=== PATIENT | male | born 1940 | race Caucasian/White ===

== ENCOUNTER 2020-04-03 08:17 | Inpatient (IN) | payer OTHER, MEDICARE ==
[~2020-04-03] VITALS: Ht 172.7 cm; Wt 57.3 kg
[2020-04-03] MEDS ORDERED: Aspirin EC81 MG PO (08:51)
[2020-04-03 09:23] LABS: International Normalized Ratio 1.4; Prothrombin Time Results 14.7 Sec (9.7-11.5)
[2020-04-03 09:26] LABS: Alanine Aminotransfer (ALT/SGP 53 U/L (12-78); Albumin, Blood 3.2 g/dL (3.4-5.0); Albumin/Globulin Ratio 0.9 (0.8-1.8); Alk Phos 104 U/L (50-136); Anion Gap 10 mmol/L (6-16); Aspartate Aminotrans (AST/SGOT 39 U/L (12-37); Bilirubin, Total 2.1 mg/dL (0.1-1.0); Blood Urea Nitrogen 41 mg/dL (8-24); Bun/Creatinine Ratio 28.3 (12.0-20.0); CO2, Blood 21 mmol/L (21-32); Calcium, Blood 8.8 mg/dL (8.5-10.1); Chloride, Blood 111 mmol/L (98-108); Creatinine, Blood 1.45 mg/dL (0.60-1.20); Globulin, Blood 3.6 g/dL (2.2-4.0); Glomerular Filtration Rate 50 (60-); Glucose, Blood 110 mg/dL (70-99); Potassium, Blood 3.5 mmol/L (3.5-5.5); Sodium, Blood 142 mmol/L (136-145); Total Protein, Blood 6.8 g/dL (6.4-8.2); Troponin I <0.015 ng/mL (0.000-0.040)
[2020-04-03] MEDS ORDERED: Pravachol40 MG PO (09:49)
[2020-04-03 10:49] LABS: BASOPHILS ABSOLUTE AUTO 0.02 K/mm3 (0.00-0.23); BASOPHILS PERCENT AUTO 0 % (0-2); EOSINOPHILS ABSOLUTE AUTO 0.03 K/mm3 (0.00-0.68); EOSINOPHILS PERCENT AUTO 0 % (0-6); Hematocrit 41.9 % (37.0-53.0); Hemoglobin 13.8 g/dL (13.5-17.5); IMMATURE GRAN ABSOLUTE AUTO 0.02 K/mm3 (0.00-0.10); IMMATURE GRAN PERCENT AUTO 0 % (0-1); LYMPHOCYTES ABSOLUTE AUTO 1.81 K/mm3 (0.84-5.20); LYMPHOCYTES PERCENT AUTO 27 % (21-46); MONOCYTES ABSOLUTE AUTO 0.59 K/mm3 (0.16-1.47); MONOCYTES PERCENT AUTO 9 % (4-13); Mean Corpuscular HGB 30.8 pg (26.0-34.0); Mean Corpuscular HGB Conc 32.9 g/dL (31.5-36.5); Mean Corpuscular Volume 94 fL (80-100); Mean Platelet Volume 11.3 fL (9.1-12.4); NEUTROPHILS ABSOLUTE AUTO 4.37 K/mm3 (1.96-9.15); NEUTROPHILS PERCENT AUTO 64 % (41-73); NRBC ABSOLUTE 0.02 K/mm3 (0.00-0.02); NRBC Auto 0.3 /100 WBC (0.0-0.2); Platelet Count 119 K/mm3 (150-400); Red Blood Cell Count 4.48 M/mm3 (4.30-5.90); White Blood Cell Count 6.84 K/mm3 (4.00-11.30)
[2020-04-03] MEDS ORDERED: AMLO5 PO (14:55)
--- NOTE | 2020-04-03 17:28 | NUR ---
ADMIT NOTE/SHIFT SUMMARY RECEIVIED REPORT FROM MIRI ESCOBAR ASSUMING CARE OF PT. PT TO ROOM AT 1450; ORIENTED TO ROOM AND CALL LIGHT. 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 PT AKIAK EVEN WITH HEARING AIR IN PLACE. ALERT, ORIENTED x3. FORGETFUL AT TIMES. PT REPORTS SOB WITH EXERTION, SPO2 >90% ON RA. PT DENIES PAIN, CHEST PAIN, DIZZINES AND NAUSEA. HR 90-120'S ON CARDIZEM GTT AND STARTED IV DIGOXIN PER ORDERS. OTHER VSS. NO OTHER ACUTE CHANGES NOTED DURING SHIFT. SON AT BEDSIDE THIS EVENING, TOOK PT [facility] HOME. WILL CONTINUE TO MONITOR UNITL REPORT GIVEN TO ONCOMING RN.
[2020-04-04 07:14] LABS: BASOPHILS ABSOLUTE AUTO 0.02 K/mm3 (0.00-0.23); BASOPHILS PERCENT AUTO 0 % (0-2); EOSINOPHILS ABSOLUTE AUTO 0.04 K/mm3 (0.00-0.68); EOSINOPHILS PERCENT AUTO 1 % (0-6); Hematocrit 43.1 % (37.0-53.0); Hemoglobin 14.3 g/dL (13.5-17.5); IMMATURE GRAN ABSOLUTE AUTO 0.03 K/mm3 (0.00-0.10); IMMATURE GRAN PERCENT AUTO 0 % (0-1); LYMPHOCYTES ABSOLUTE AUTO 2.09 K/mm3 (0.84-5.20); LYMPHOCYTES PERCENT AUTO 29 % (21-46); MONOCYTES PERCENT AUTO 8 % (4-13); Mean Corpuscular HGB Conc 33.2 g/dL (31.5-36.5); Mean Corpuscular Volume 93 fL (80-100); Mean Platelet Volume 10.6 fL (9.1-12.4); NEUTROPHILS ABSOLUTE AUTO 4.33 K/mm3 (1.96-9.15); NEUTROPHILS PERCENT AUTO 61 % (41-73); Platelet Count 100 K/mm3 (150-400); RDW Standard Deviation 51.2 fL (35.1-46.3); Red Blood Cell Count 4.62 M/mm3 (4.30-5.90); White Blood Cell Count 7.11 K/mm3 (4.00-11.30)
[2020-04-04 07:24] LABS: Albumin, Blood 2.9 g/dL (3.4-5.0); Albumin/Globulin Ratio 0.9 (0.8-1.8); Bilirubin, Total 2.2 mg/dL (0.1-1.0); Bun/Creatinine Ratio 29.7 (12.0-20.0); Calcium, Blood 8.5 mg/dL (8.5-10.1); Creatinine, Blood 1.28 mg/dL (0.60-1.20); Globulin, Blood 3.4 g/dL (2.2-4.0); Phosphorus, Blood 3.2 mg/dL (2.5-4.9); Potassium, Blood 3.7 mmol/L (3.5-5.5); Total Protein, Blood 6.3 g/dL (6.4-8.2)
--- NOTE | 2020-04-04 08:10 | NUR ---
Pt set bed alarm off when he exited to go to the bathroom. Assisted to bathroom to void. Walked with verbal cues to chair, chair alarm on. He is eating breakfast.
--- NOTE | 2020-04-04 09:29 | NUR ---
RECIEVED REPORT FROM TONG ANDRE RN @ 3370. PATIENT TO TRANSFER TO ROOM 343.
--- NOTE | 2020-04-04 14:30 | NUR ---
PATIENT HAS BEEN PLEASANT AND COOPERATIVE WITH STAFF. VITALS ARE STABLE. DENIES PAIN OR DISCOMFORT. PLEASANTLY CONFUSED. DENIES PAIN OR DISCOMFORT. NO ACUTE CHANGES TO REPORT OF AT THIS TIME. CALL LIGHT WITHIN REACH.
--- NOTE | 2020-04-04 18:08 | NUR ---
Transfer from 343 to 346 Patient transferred to room 346 for closer observation. Received brief update from Yulia CHERY. Patient settled to room and currently sleeping. Dinner left at bedside. SALUD.
--- NOTE | 2020-04-04 18:08 | NUR ---
GAVE VERBAL REPORT TO MIRI FREGOSO. PATIENT MOVED TO ROOM 346 IN THE SCU FOR CLOSER MONITORING. GREGORY TO ASSUME PATIENT CARE AT THIS TIME.
--- NOTE | 2020-04-04 18:49 | NUR ---
ADMIT:04/03/20 DISCHARGE: DX: afib, chf CC: [facility] TRANG CALL: Met with Julien and lance Jacobo, call Julien at home for trang RESIDENCE: home- alone, upstair apartment- 15 steps. CAREGIVER: no hippa contacts [facility] Donnell Estrada [phone]- Friend, will be ride home from Hospital. DX: htn, copd, hearing loss, AFIB, CHF, see list. DME: no record CCM: no record HOME HEALTH: no record SUMMARY: ADMIT 04/03/20 04/04/20 ETA for discharge Wednesday per Dr Oneal. Met with Julien and Donnell today, discussed home, upstairs. Climbed 8 stairs today before tiring with PT, Will see how he is doing tommorrow before discharging home. He does not use ambulation aids. still drives and cooks for himself. Friend Donnell will help with at home until he is strong enough to meet his own needs. Discussed Medicaid services for future care needs. Sisters on contact list from Sheila Sotelo [phone] Cristina [phone] Pt recommends home, outpatient pt, partime care. CHF education was provided in hosptial by RT Bhavik Alvarez. 04/03/19 ASSESSMENT AND PLAN: 1. New onset atrial fibrillation with rapid ventricular response. He is currently on a Cardizem drip. Toprol-XL 50 mg has been administered and we will also add digoxin. Start anticoagulation with low molecular weight heparin. 2. New onset congestive heart failure with bilateral lower extremity edema. Start diuresis with Lasix and Aldactone. Obtain echocardiogram.
--- NOTE | 2020-04-04 23:32 | NUR ---
CALL TO HOSPITALIST / HR SUSTAINED 125-130 FOR ABOUT 10MIN PT SLEEPING. ASYMPTOMATIC. RECEIVED ORDER FROM KAT DE LOS SANTOS FOR METOPROLOL 5MG IV OT. IF METOPROLOL EFFECTIVE, INITIATE ORDER FOR METOPROLOL 5MG IV Q2 HRS PRN HR SUSTATINED >120.
--- NOTE | 2020-04-05 06:42 | NUR ---
SHIFT SUMMARY: PT A/O TO SELF ONLY. VERY CONFUSED AND FORGETFUL. PLEASANT. SLEPT INTERMITTENTLY. PT UP INDEPENDENTLY AMB IN ROOM. GAIT IS STEADY. PT SAW THAT HIS BRIEF WAS WET BUT DID NOT UNDERSTAND WHAT TO DO WHEN HANDED A CLEAN DRY ONE. RATE AND RHYTHM: AFIB W/ HR RANGING FROM 106-118. BP STABLE OVERNIGHT. PT IS SLEEPING AT THIS TIME. [facility].
--- NOTE | 2020-04-05 08:38 | NUR ---
HR Afib 126-140's Patient has been trending upwards with HR since 0752 this AM per environmental monitoring specialist. HR ranges between 126-140's. Oral AM meds given. Dr. Castañeda notified. Awaiting order for lopressor IV.
--- NOTE | 2020-04-05 08:57 | NUR ---
UPDATE HR 5 MINS POST IV LOPRESSOR GIVEN, PER SUPERVISOR CONDITIONING YARD, PATIENT HR STILL RANGING BETWEEN 115-130'S. WCTM.
--- NOTE | 2020-04-05 09:20 | NUR ---
UPDATE HR 15 MINUTES POST IV LOPRESSOR GIVEN, HR RANGING 120-130'S. DR. CARLSON NOTIFIED AND IN TO SEE PATIENT AT THIS TIME. MD DECISION TO KEEP PATIENT ON MED FLOOR. AWAITING FURTHER ORDERS. CHARGE NURSE NOTIFIED.
[2020-04-05 09:27] LABS: BASOPHILS ABSOLUTE AUTO 0.01 K/mm3 (0.00-0.23); BASOPHILS PERCENT AUTO 0 % (0-2); EOSINOPHILS ABSOLUTE AUTO 0.07 K/mm3 (0.00-0.68); EOSINOPHILS PERCENT AUTO 1 % (0-6); Hemoglobin 15.7 g/dL (13.5-17.5); IMMATURE GRAN ABSOLUTE AUTO 0.04 K/mm3 (0.00-0.10); IMMATURE GRAN PERCENT AUTO 1 % (0-1); LYMPHOCYTES ABSOLUTE AUTO 2.01 K/mm3 (0.84-5.20); LYMPHOCYTES PERCENT AUTO 29 % (21-46); MONOCYTES ABSOLUTE AUTO 0.62 K/mm3 (0.16-1.47); MONOCYTES PERCENT AUTO 9 % (4-13); Mean Corpuscular HGB Conc 33.4 g/dL (31.5-36.5); Mean Corpuscular Volume 93 fL (80-100); Mean Platelet Volume 10.2 fL (9.1-12.4); NEUTROPHILS ABSOLUTE AUTO 4.22 K/mm3 (1.96-9.15); NEUTROPHILS PERCENT AUTO 61 % (41-73); NRBC ABSOLUTE 0.02 K/mm3 (0.00-0.02); NRBC Auto 0.3 /100 WBC (0.0-0.2); Platelet Count 108 K/mm3 (150-400); RDW Standard Deviation 50.4 fL (35.1-46.3); Red Blood Cell Count 5.06 M/mm3 (4.30-5.90); White Blood Cell Count 6.97 K/mm3 (4.00-11.30)
[2020-04-05 09:44] LABS: Albumin, Blood 2.5 g/dL (3.4-5.0); Albumin/Globulin Ratio 0.8 (0.8-1.8); Bun/Creatinine Ratio 25.7 (12.0-20.0); Calcium, Blood 8.1 mg/dL (8.5-10.1); Creatinine, Blood 1.36 mg/dL (0.60-1.20); Globulin, Blood 3.3 g/dL (2.2-4.0); Potassium, Blood 3.7 mmol/L (3.5-5.5); Total Protein, Blood 5.8 g/dL (6.4-8.2)
--- NOTE | 2020-04-05 19:25 | NUR ---
Shift Summary A/Ox2-3 with occassional forgetfulness. HR better managed the rest of shift since additional meds ordered. Thigh-high TEDS placed on BLE, 3+ edema still present. Up independently in room and to bathroom. Encouraged use of urinal for accurate I/O. Daughter at bedside briefly this afternoon. Per daughter, Davy (son) is the contact point for all questions. Tele: Afib 108. Denies chest pain, shortness of breath, dizziness, nausea, vomiting. Appetite is poor. Worked with PT, refused OT. Report given to oncoming RN.
--- NOTE | 2020-04-06 04:31 | NUR ---
SHIFT SUMMARY ADMITTED FOR NEW ONSET AFIB W/RVR. FULL CODE. PLAN IS FOR EVENTUAL DC HOME W/HH. PT WANDERS AND IS FORGETFUL. IV METOPROLOL GIVEN FOR TACHYCARDIA ONE TIME THIS SHIFT. PT REMOVES HIS TELEMETRY FREQUENTLY. HE DOES LIVE ALONE. HE IS EASILY REDIRECTABLE.
[2020-04-06 05:54] LABS: Anion Gap 9 mmol/L (6-16); Blood Urea Nitrogen 33 mg/dL (8-24); Bun/Creatinine Ratio 26.2 (12.0-20.0); CO2, Blood 27 mmol/L (21-32); Calcium, Blood 8.2 mg/dL (8.5-10.1); Chloride, Blood 105 mmol/L (98-108); Creatinine, Blood 1.26 mg/dL (0.60-1.20); Digoxin (Lanoxin) 1.37 ug/mL (0.80-2.00); Glomerular Filtration Rate 59 (60-); Glucose, Blood 73 mg/dL (70-99); Magnesium, Blood 1.7 mg/dL (1.6-2.4); Potassium, Blood 3.5 mmol/L (3.5-5.5); Sodium, Blood 141 mmol/L (136-145)
--- NOTE | 2020-04-06 18:06 | NUR ---
PT AOX2-3 WITH CONFUSION. PT AT TIMES WILL APPEAR MUCH MORE ORIENTED, BUT THEN BE VERY CONFUSED MOMENTS AFTER. PT HAS BEEN VERY BUSY PULLING OF HIS TELE TODAY AND FORGOT TO PULL DOWN HIS ATTENDS WHEN HE HAD A BM ON TOILET. PT HAS HAD A COUPLE INCREASED HR EPISODES AND SEARCH AND RESCUE OFFICER DR HERRERA WAS CONSULTED. PT IS TO BE TREATED OUT PT. PT HAD BEEN KEEP NPO PRIOR TO CONSULT INCASE HE NEEDED ANYTHING DONE. PT IS NOW EATING DINNER. SON CALLED ILIR IN THE DAY. HE AND HIS SISTER ARE CONCERNED FOR PT'S SAFETY HE SEEMS TO BE VERY CONFUSED. SON STATED HIS SISTER HAD TOLD HIM THE PT COULD NOT REMEMBER HER NAME WHEN SHE VISITED YESTERDAY. CALL LIGHT IS WITHIN REACH WILL CONTINUE TO MONITOR.
--- NOTE | 2020-04-07 03:19 | NUR ---
TELE REPORTS PT'S HR A. FIB IN THE 120'S TO 130'S. IV LOSPRESSOR GIVEN. WILL CONTINUE TO MONITOR.
[2020-04-07 05:38] LABS: Anion Gap 7 mmol/L (6-16); Blood Urea Nitrogen 27 mg/dL (8-24); Bun/Creatinine Ratio 23.1 (12.0-20.0); CO2, Blood 31 mmol/L (21-32); Calcium, Blood 8.6 mg/dL (8.5-10.1); Chloride, Blood 99 mmol/L (98-108); Creatinine, Blood 1.17 mg/dL (0.60-1.20); Glomerular Filtration Rate >60 (60-); Glucose, Blood 82 mg/dL (70-99); Magnesium, Blood 1.8 mg/dL (1.6-2.4); Potassium, Blood 3.6 mmol/L (3.5-5.5); Sodium, Blood 137 mmol/L (136-145)
--- NOTE | 2020-04-07 06:59 | NUR ---
pecan mallow dipper summary a/o x0. pt impulsive and kept getting out of bed without calling. pt very unstable on feet and does not follow directions. shante vest placed on 0040, education given on why it was placed. pt irritable and was cussed. able to sleep some of the night. report given to oncoming rn.
--- NOTE | 2020-04-07 14:07 | NUR ---
SUMMARY: ADMIT 04/03/20 04/07/20- per chart review with Dr. Castañeda, he originally stated that pt could be d/c home today. But after talking with son, Domingo, pt will be staying and either SNF &/or Long-term care facility will need to be found for pt due to him living by himself and concerns about pt being able to take care of himself. -yudith
[2020-04-08 05:50] LABS: BASOPHILS ABSOLUTE AUTO 0.01 K/mm3 (0.00-0.23); BASOPHILS PERCENT AUTO 0 % (0-2); EOSINOPHILS ABSOLUTE AUTO 0.16 K/mm3 (0.00-0.68); EOSINOPHILS PERCENT AUTO 2 % (0-6); Hematocrit 45.8 % (37.0-53.0); Hemoglobin 15.5 g/dL (13.5-17.5); IMMATURE GRAN ABSOLUTE AUTO 0.02 K/mm3 (0.00-0.10); IMMATURE GRAN PERCENT AUTO 0 % (0-1); LYMPHOCYTES ABSOLUTE AUTO 2.76 K/mm3 (0.84-5.20); LYMPHOCYTES PERCENT AUTO 35 % (21-46); MONOCYTES ABSOLUTE AUTO 0.98 K/mm3 (0.16-1.47); MONOCYTES PERCENT AUTO 13 % (4-13); Mean Corpuscular HGB 30.6 pg (26.0-34.0); Mean Corpuscular HGB Conc 33.8 g/dL (31.5-36.5); Mean Corpuscular Volume 91 fL (80-100); Mean Platelet Volume 10.3 fL (9.1-12.4); NEUTROPHILS PERCENT AUTO 50 % (41-73); Platelet Count 126 K/mm3 (150-400); RDW Coefficient Variation 14.6 % (11.7-14.2); RDW Standard Deviation 48.4 fL (35.1-46.3); Red Blood Cell Count 5.06 M/mm3 (4.30-5.90); White Blood Cell Count 7.83 K/mm3 (4.00-11.30)
[2020-04-08 06:23] LABS: Anion Gap 7 mmol/L (6-16); Blood Urea Nitrogen 28 mg/dL (8-24); Bun/Creatinine Ratio 24.1 (12.0-20.0); CO2, Blood 29 mmol/L (21-32); Calcium, Blood 8.7 mg/dL (8.5-10.1); Chloride, Blood 101 mmol/L (98-108); Creatinine, Blood 1.16 mg/dL (0.60-1.20); Glomerular Filtration Rate >60 (60-); Glucose, Blood 79 mg/dL (70-99); Potassium, Blood 3.5 mmol/L (3.5-5.5); Sodium, Blood 137 mmol/L (136-145)
--- NOTE | 2020-04-08 07:03 | NUR ---
04/08/20 0600 PT IN BOTH VEST AND KEISHA. WRIST RESTRAINTS DUE TO HIS NON-COMPLIANCE WITH STAYING IN BED AND NOT PULLING AT IV DRESSINGS. BED ALARM AND CONTINOUS VIDEO MONITORING FOR SAFETY IN EFFECT. UP TO THE BATHROOM FOR VOIDINGS.
--- NOTE | 2020-04-08 10:18 | NUR ---
04/04/20 s/w Son Domingo, discussed PT OT eval, PT rec home, OT rec Memory care. Discussed applying for Medicaid, home caregivers, Mailed him a packet of information, housing, caregivers, medicaid and gaurdianship. DOMINGO LEON [phone]. SON. LATE ENTRY. 04/08/20. CP
--- NOTE | 2020-04-08 17:15 | NUR ---
PT AOX1 WITH CONFUSION. PT HAD WRIST RESTRAINTS REMOVED AND STILL NEEDS POSE VEST RESTRAINT HE IS UNSTEADY AND IMPULSIVE. PT KEEPS STATING HE WANTS TO LEAVE, BUT AT THIS TIME DOES NOT KEEP TO THE SAME TOPIC SEEMS TO LOOSE TRACK OF WHAT HE HAS TO SAY OR FORGET WHAT HE WAS TALKING ABOUT. PT IS VERY HARD TO REDIRECT. PT WAS EASIER TO GET FROM RESTROOM TO BED TODAY COMPARED TO YESTERDAY. PT NEEDS HIS PILL CRUSHED IN APPLESAUCE HE HAS TROULBE NOW REMEMBERING HE HAS TO SWALLOW. CALL LIGHT IS WITHIN REACH WILL CONTINUE TO MONITOR.
--- NOTE | 2020-04-08 21:40 | NUR ---
04/08/20 Julien is much more confused since I met with him on . Floor nurse says he more of a fall risk, says his eyes glaze over and his knees will buckle underneath him. He is sucking on his medications instead of swallowing. He has been in restrainsts for the last 2 days due to getting out of bed with out help and pulling out IV lines. Will contact Son to discuss retirement care planning. Not safe to discharge home alone per floor nurse. cp
--- NOTE | 2020-04-09 04:51 | NUR ---
DERMATOPATHOLOGIST SUMMARY NO ACUTE CHANGE THIS SHIFT. PT AAO TO SELF AND . UNAWARE THAT HE IS IN THE HOSPITAL MOST OF THE TIME. REMAINS IN [place] VEST PT CONTINUES TO ATTEMPT TO GET OUT OF BED WITHOUT ASSISTANCE AND PT IS HIGH FALL RISK. PT IS MOSTLY PLEASANT AND COOPERATIVE. EASILY REDIRECTED. ASSISTED WITH URINAL AT BEDSIDE ONCE TONIGHT. VSS, WILL CONTINUE TO MONITOR.
--- NOTE | 2020-04-09 18:46 | NUR ---
PATIENT IS ALERT AND ORIENTED TO SELF AND FAMILY. THE PATIENT HAS A HARD TIME FOLLOWING DIRECTIONS. THE PATIENT DOES TRY TO GET OUT OF BED OR THE CHAIR ON HIS OWN, BED ALARM AND CHAIR ALARM IN PLACE. PATIENT IS ON CAMERA MONITORING. PATIENT WORKED WITH PT AND OT TODAY. HE CAN WALK TO THE BATHROOM WITH 1PA. THE PATIENT HAS ONE HEARING AID IN PLACE. THE FAMILY IS IN CONTACT WITH KARLA FROM [employer]. WILL CONTINUE TO MONITOR.
--- NOTE | 2020-04-09 18:52 | NUR ---
04/09/20 s/w Domingo, son, by telephone, he will contact [employer] and apply for services for his father. Still in restrainsts. Dr Diallo to order another cognitive evaluation from OT.
--- NOTE | 2020-04-10 05:12 | NUR ---
SHIFT SUMMARY NO ACUTE CHANGES TO REPORT THIS SHIFT. PT HAS RESTED MOST OF THE NIGHT. PT IS VERY CONFUSED A/O TO SELF AND HAS DIFFICULTY FOLLOWING DIRECTIONS. PT OCCASIONALLY SETS OFF BED ALARM T/O THE NIGHT, MOSTLY WHEN HE NEEDS TO GO TO THE BATHROOM. ASSESSMENT REMAINS UNCHANGED. BED IN LOWEST POSITION, CALL LIGHT WITHIN REACH.
--- NOTE | 2020-04-10 13:55 | NUR ---
04/10/20 s/w Domingo- son by telephone, still working on applying for ap[employer] services for placement or care. PT today states walking 150 ft, climbed stairs. rec home. partime care Out of restrainsts and easily redirectable per floor nurse. OT from rec memory care. Dr Diallo requested an additional mini mental eval today. cp
--- NOTE | 2020-04-10 18:27 | NUR ---
SHIFT SUMMARY- PT WORKED WITH THERAPY TODAY, WALKED STAIRS WELL. PT ALERT TO SELF AND FAMILY. PT HAD A FRIEND COME TO VISIT HIM THIS EVENING AND HE CALLED HER BY NAME. PT WAS ASKED FOR PERMISSION TO SPEAK TO HIS DAUGHTER AND HE STATED "SURE I HAVE HER NUMBER DO YOU NEED IT?" PT VERBALLY GAVE PERMISSION FOR THE STAFF TO SPEAK TO HIS DAUGHTER. COMMUNICATION SHEET UPDATED. PT CURRENTLY IN BED, CALL LIGHT IN REACH BED ALARM FOR SAFETY.
--- NOTE | 2020-04-11 07:18 | NUR ---
SHIFT SUMMARY PATIENT CONFUSED OVERNIGHT, WAS PLEASANT AND EASILY REDIRECTABLE. HE SLEPT WELL MOST OF THE NIGHT. WOULD OCCASIONALLY TRY TO EXIT HIS BED AND SET THE ALARM OFF. BED IN LOWEST POSITION WITH WHEELS LOCKED AND ALARM ON. CALL LIGHT WITHIN REACH. REPORT GIVEN TO ONCOMING RN.
--- NOTE | 2020-04-11 17:55 | NUR ---
04/11/20 Met with Domingo (son) and Julien in room today, Dr Diallo updated POLST. Emailed [employer] form for Domingo to have access to medical records and apply for services for Julien.. cp
--- NOTE | 2020-04-11 19:25 | NUR ---
SHIFT SUMMARY- PT ALERT AND ORIENTED TO SELF AND FAMILY. PT IS STILL UNAWARE OF WHERE HE IS. PT HAS A BED ALARM ON FOR SAFETY. PT ON CAMERAS FOR SAFETY. PT IMPULSIVE, DOES NOT CALL APPROPRIATELY AND HAS LARGE BRUISES AND SCRAPES ON HIS KNEES POTENTIALLY FROM PRIOR FALLS. PT IS STILL A FALL RISK. PT IN BED WITH THE CALL LIGHT IN REACH NO S&S OF DISTRESS AT THE TIME OF SHIFT CHANGE. BEDSIDE REPORT COMPLETED WITH NIGHT MIRI ONTIVEROS.
--- NOTE | 2020-04-12 06:03 | NUR ---
SHIFT SUMMARY PATIENT PLEASANTLY CONFUSED OVERNIGHT. WAS ABLE TO BE REDIRECTED FAIRLY EASILY. HAD NO COMPLAINTS OF CHEST PAIN OR SHORTNESS OF BREATH. SLEPT WELL OVERNIGHT. BED IN LOWEST POSITION WITH WHEELS LOCKED AND ALARM ON. CALL LIGHT WITHIN REACH. REPORT GIVEN TO ONCOMING RN.
--- NOTE | 2020-04-12 17:54 | NUR ---
04/12/20 s/w Renita in Care management. Discussed that Julien is in need of senior living care, family unable to pay or care for his 24 hour needs. Son Domingo is applying for Services through [employer]. Renita added Julien to the manager long term care care list and waiting for medicaid approval list that she manages. cp
--- NOTE | 2020-04-12 18:39 | NUR ---
SHIFT SUMMARY- PT ALERT AND ORIENTED TO SELF AND FAMILY. POLST FORM COMPLETED BY THE FAMILY, COPY IN THE FRONT OF THE PT CHART. PT HAS BEEN PLEASENTLY CONFUSED TODAY, BECAME A BIT AGGITATED THIS EVENING. NO S&S OF DISTRESS NOTED AT THE TIME OF REPORT. PT IN BED SLEEPING.
[2020-04-13 05:37] LABS: BASOPHILS ABSOLUTE AUTO 0.03 K/mm3 (0.00-0.23); BASOPHILS PERCENT AUTO 0 % (0-2); EOSINOPHILS ABSOLUTE AUTO 0.12 K/mm3 (0.00-0.68); EOSINOPHILS PERCENT AUTO 2 % (0-6); Hematocrit 47.5 % (37.0-53.0); Hemoglobin 15.7 g/dL (13.5-17.5); IMMATURE GRAN ABSOLUTE AUTO 0.03 K/mm3 (0.00-0.10); IMMATURE GRAN PERCENT AUTO 0 % (0-1); LYMPHOCYTES ABSOLUTE AUTO 2.42 K/mm3 (0.84-5.20); LYMPHOCYTES PERCENT AUTO 32 % (21-46); MONOCYTES ABSOLUTE AUTO 0.86 K/mm3 (0.16-1.47); MONOCYTES PERCENT AUTO 11 % (4-13); Mean Corpuscular HGB Conc 33.1 g/dL (31.5-36.5); Mean Corpuscular Volume 91 fL (80-100); Mean Platelet Volume 9.9 fL (9.1-12.4); NEUTROPHILS PERCENT AUTO 55 % (41-73); Platelet Count 157 K/mm3 (150-400); RDW Coefficient Variation 14.9 % (11.7-14.2); RDW Standard Deviation 49.3 fL (35.1-46.3); Red Blood Cell Count 5.23 M/mm3 (4.30-5.90); White Blood Cell Count 7.66 K/mm3 (4.00-11.30)
--- NOTE | 2020-04-13 05:46 | NUR ---
SHIFT SUMMARY NO ACUTE CHANGES THIS SHIFT, NO C/O ANY KIND, PT A&O TO SELF, NOT ALWAYS EASY TO REDIRECT, SLEPT T/O THE NIGHT WAKING AND SETTING BED ALARM OFF A FEW TIMES TO USE THE BATHROOM, SLEEPING AT THIS TIME, CALL LIGHT IN REACH, WILL CONT TO MONITOR UNTIL REPORT GIVEMN TO DAY RN.
[2020-04-13 05:57] LABS: Albumin, Blood 2.8 g/dL (3.4-5.0); Anion Gap 7 mmol/L (6-16); Blood Urea Nitrogen 33 mg/dL (8-24); Bun/Creatinine Ratio 26.6 (12.0-20.0); CO2, Blood 27 mmol/L (21-32); Calcium, Blood 8.5 mg/dL (8.5-10.1); Chloride, Blood 104 mmol/L (98-108); Creatinine, Blood 1.24 mg/dL (0.60-1.20); Glomerular Filtration Rate >60 (60-); Glucose, Blood 72 mg/dL (70-99); Magnesium, Blood 2.5 mg/dL (1.6-2.4); Phosphorus, Blood 3.2 mg/dL (2.5-4.9); Sodium, Blood 138 mmol/L (136-145)
--- NOTE | 2020-04-13 15:49 | NUR ---
HE WALKS EASILY WITH 1 ASSIST. HE NEEDS HELP D/T POOR VISION AND CONFUSION.
--- NOTE | 2020-04-13 17:52 | NUR ---
REMAINS VERY CONFUSED. HE IS PLEASANT. NO SHORT TERM MEMORY. HIS SON PANDA CAME TO VISIT HIM BUT DID NOT WAKE HIM. SAYS A FRIEND WILL COME TOMORROW INSTEAD OF HIM. HE SAYS HIS DAD LIVED ALONE AND WAS NOT CONFUSED LIKE THIS AT HOME BUT ADMITS HE DID NOT SEE HIM OR PHONE HIM REGULARLY. WHEN I LATER TOLD EILEEN THAT PANDA WAS HERE HE DID NOT SEEM TO UNDERSTAND. HIS KNEES LOOK LIKE MULTIPLE TINY SCABS. HE SAYS HE SKINNED THEM UP. THE REPORT IS THAT HE HAD MULTIPLE FALLS AT HOME. WE USE ALL THE ALARMS BUT HE IS VERY IMPULSIVE AND FAST. OFTEN HE IS ON HIS FEET AND AWAY FROM THE BED OR CHAIR WHEN WE RUN IN. HE HAS NOT EATEN WELL THOUGH ENCOURAGED AT EACH MEAL. VSS.
--- NOTE | 2020-04-14 05:06 | NUR ---
SHIFT SUMMARY PT REMAINS CONFUSED, SLEPT T/O THE NIGHT WAKING AND SOUNDING BED ALARM WHEN ATTEMPTING TO TOILET, TWICE THIS SHIFT DURING TRIPS TO/FROM BATHROOM PT HAS HAD EPISODES OF SHAKING AND BECOMING WEAK AND HAVING NEAR FALL'S BOTH TIME STAFF WAS WITH PT AND ABLE TO ASSIST HIM TO SIT IN CHAIR. NO OTHER CHANGES THIS SHIFT, PT SLEEPING AT THIS TIME, CALL LIGHT IN REACH, WILL CONT TO MONITOR UNTIL REPORT GIVEN TO DAY RN.
[2020-04-14 05:46] LABS: Albumin, Blood 2.7 g/dL (3.4-5.0); Anion Gap 7 mmol/L (6-16); Blood Urea Nitrogen 32 mg/dL (8-24); Bun/Creatinine Ratio 25.4 (12.0-20.0); CO2, Blood 26 mmol/L (21-32); Calcium, Blood 8.5 mg/dL (8.5-10.1); Chloride, Blood 104 mmol/L (98-108); Creatinine, Blood 1.26 mg/dL (0.60-1.20); Glomerular Filtration Rate 59 (60-); Glucose, Blood 102 mg/dL (70-99); Magnesium, Blood 2.4 mg/dL (1.6-2.4); Phosphorus, Blood 3.4 mg/dL (2.5-4.9); Potassium, Blood 4.6 mmol/L (3.5-5.5); Sodium, Blood 137 mmol/L (136-145)
--- NOTE | 2020-04-14 17:36 | NUR ---
HE HAS NAPPED OFF AND ON TODAY. HE REMAINS EXTREMELY CONFUSED. HE IS UNABLE TO FOLLOW DIRECTIONS. HIS NEIGHBOR FRIEND OWEN CALLED HIM. HE COULDN'T HEAR HER VERY WELL BUT DIDN'T KNOW WHO I WAS TALKING ABOUT WHEN I GAVE HIM HER MESSAGE. I NOTIFIED TODAY THAT THIS MORNING EILEEN HAD A POSSIBLE SYNCOPAL EPISODE OR ODD SEIZURE WHEN I TRIED TO GET HIM BACK TO BED FROM THE BATHROOM. EILEEN SAID HE COULDN'T AND LOOKED LIKE HE MIGHT FAINT. HE BENT FORWARD INTO THE RESP RECOVERY POSITION. I CALLED FOR HELP AND UPON STARTING TO AMBULATE BACK TO BED HE SEEMED UNRESPONSIVE AND HIS LEGS WIGGLED BACK AND FORTH KIND OF BUCKLING. WE LAYED HIM ON HIS BED. HE BECAME AWARE OF US WITHIN 30 SEC OF LYING DOWN. HIS BP WAS 110/70 AND PULSE 137. 4 MIN LATER HIS BP WENT UP AND THE PULSE CAME DOWN. I WAS UNABLE TO CHECK HIS BPIN THE BATHROOM BECAUSE HE KEPT BENDING FORWARD WITH ARMS TIGHT. HE HAD ONE MORE EPISODE LIKE THAT EARLY AFTERNOON. SINCE THAT TIME I GOT HIM UP TO THE [facility] WITHOUT INCIDENT. HR OTHERWISE HAS NO COMPLAINTS. WE ARE UNABLE TO COMMUNICATE D/T HIS SEVERE CONFUSION. HE IS EATING WELL TODAY THOUGH. I ALSO GAVE 1 PRN PO METOPROLOL THIS AFTERNOON FOR PULSE GREATER THAN 120.
--- NOTE | 2020-04-14 19:30 | NUR ---
ORTHOSTATIC BLOOD PRESSURES: SBP DROPPED FROM 130 TO 83 FROM LYING TO SITTING THEN STANDING. HR WAS STABLE AT 80'S. HE DIDN'T APPEAR DIZZY OR LIGHTHEADED BUT PT HAS SEVERE DEMENTIA W/DIFFICULTY ANSWERING Q'S APPROPRIATELY AND FOLLOWING COMMANDS. 2 STAFF HAD TO ASSIST PT TO STAND BECAUSE HE KEPT TRYING TO SIT BACK DOWN AND RETURN TO BED. ACCURACY OF RESULTS IS QUESTIONABLE BUT BP DROP WAS EVIDENT W/INITIAL LYING TO SITTING READ OF 130/81 THEN 83/49.
--- NOTE | 2020-04-15 05:00 | NUR ---
SUMMARY: PT REMAINS PLEASANTLY CONFUSED EXCEPT TO SELF W/BED ALARM ON FOR FALL RISK AND IMPULSIVITY OOB. HE'S VERY SWEET BUT HAS NONSENSICAL SPEECH AND DIFFICULTY CONVERSATING OR FOLLOWING INSTRUCTION R/T DEMENTIA. HE HAD A NEAR SYNCOPAL EPISODE ON DAY SHIFT SO ORTHOS WERE PERFORMED PER NEW ORDERS. SBP DID DROP FROM 130 TO 83 WHEN GOING FROM LYING TO SITTING THEN STANDING. HR REMAINED STABLE IN 80'S PER APICAL PULSE D/T HX AFIB. 1-2PA PROVIDED W/GAIT BELT TO TOILET X2 BUT NO FURTHER SYNCOPE OBSERVED AND PT WAS STABLE ON FEET. HE IS OCCASIONALLY TACHY W/HR MAX 105 BPM THIS SHIFT BUT PRN METOPROLOL WASN'T REQUIRED PER PARAMETERS. PO INTAKE REMAINS POOR DESPITE ENCOURAGEMENT. VSS AND AFEBRILE, NO ACUTE CHANGES. WTCM AND REPORT TO DAY RN.
[2020-04-15 05:42] LABS: BASOPHILS ABSOLUTE AUTO 0.03 K/mm3 (0.00-0.23); BASOPHILS PERCENT AUTO 0 % (0-2); EOSINOPHILS ABSOLUTE AUTO 0.13 K/mm3 (0.00-0.68); EOSINOPHILS PERCENT AUTO 2 % (0-6); Hematocrit 43.9 % (37.0-53.0); Hemoglobin 14.4 g/dL (13.5-17.5); IMMATURE GRAN ABSOLUTE AUTO 0.01 K/mm3 (0.00-0.10); IMMATURE GRAN PERCENT AUTO 0 % (0-1); LYMPHOCYTES ABSOLUTE AUTO 2.54 K/mm3 (0.84-5.20); LYMPHOCYTES PERCENT AUTO 32 % (21-46); MONOCYTES ABSOLUTE AUTO 0.84 K/mm3 (0.16-1.47); MONOCYTES PERCENT AUTO 11 % (4-13); Mean Corpuscular HGB 30.1 pg (26.0-34.0); Mean Corpuscular HGB Conc 32.8 g/dL (31.5-36.5); Mean Corpuscular Volume 92 fL (80-100); Mean Platelet Volume 9.8 fL (9.1-12.4); NEUTROPHILS ABSOLUTE AUTO 4.37 K/mm3 (1.96-9.15); NEUTROPHILS PERCENT AUTO 55 % (41-73); Platelet Count 185 K/mm3 (150-400); RDW Coefficient Variation 15.2 % (11.7-14.2); RDW Standard Deviation 51.1 fL (35.1-46.3); Red Blood Cell Count 4.79 M/mm3 (4.30-5.90); White Blood Cell Count 7.92 K/mm3 (4.00-11.30)
[2020-04-15 05:59] LABS: Albumin, Blood 2.7 g/dL (3.4-5.0); Anion Gap 8 mmol/L (6-16); Blood Urea Nitrogen 39 mg/dL (8-24); Bun/Creatinine Ratio 30.5 (12.0-20.0); CO2, Blood 24 mmol/L (21-32); Calcium, Blood 8.4 mg/dL (8.5-10.1); Chloride, Blood 106 mmol/L (98-108); Creatinine, Blood 1.28 mg/dL (0.60-1.20); Glomerular Filtration Rate 58 (60-); Glucose, Blood 81 mg/dL (70-99); Phosphorus, Blood 3.6 mg/dL (2.5-4.9); Potassium, Blood 4.2 mmol/L (3.5-5.5); Sodium, Blood 138 mmol/L (136-145)
--- NOTE | 2020-04-15 10:27 | NUR ---
[address] DEUTSCH IN REGARDS TO DROP IN BP FROM LYING TO SITTING THIS AM, PT FELT DIZZY WHEN STANDING AND DID NOT TOLERATE STANDING BP. RECIEVED ORDER TO D/C SPIRINOLACTONE. 1025 BP 93/55, APICAL HR 100 AND IRREGULAR, THIS WAS LYING DOWN, PT REPORTS FEELING DIZZY. DR. DEUTSCH NOTIFIED, HE REQUESTED TO HOLD PT'S LASIX BUT GIVE METOPROLOL.
--- NOTE | 2020-04-15 17:48 | NUR ---
04/15/20 faxed Authorized signee form to [facility] office today. previously emailed on . I have been having problems with [facility] receiving my email. Julien remains a placement issue unless his mentation clears up while waiting for Medicaid approval. pattie
--- NOTE | 2020-04-15 18:14 | NUR ---
SHIFT SUMMARY PT IS A&O TO SELF. PT BELEIVED HE WAS IN [place] WHEN ASKED. PT IS IMPULSIVE AND WILL TRANSFER SELF W/O USING CALL LIGHT. PT STATED FEELING LIGHT HEADED IN THE MORING WHILE LAYING DOWN AND HAD A BP 93/55 APICAL HR OF 100. NOTIFIED DR AND MORING MEDICATIONS WAS ADJUSTED. AFTERNOON BP 130/64. PT CAN OCCASIONALY BE DIFFICULT TO DIRECT PT WANTS TO DO WHAT HE WANTS. PT IS PLEASANT AND HYDABURG. PT TOOK MORING MEDICATIONS IN WHOLE IN APPLESAUCE BUT ENDED UP CHEWING THE PILLS. PT CURENTLY IN BED WITH HEAD ELEVATED FINISHING DINNER. CALL LIGHT IS NEXT TO PT.
--- NOTE | 2020-04-16 00:30 | NUR ---
METOPROLOL RECIEVED NOW SINCE BP HAS IMPROVED TO 131/91 BUT HR WAS 106 BPM ON MONITOR W/APICAL PULSE OF 120 BPM.
--- NOTE | 2020-04-16 05:52 | NUR ---
SUMMARY: PT A/OX1 TO SELF ONLY AND VERY [place]. HE ATTEMPTS TO CONVERSATE APPROPRIATELY BUT HAS SEVERE DEMENTIA W/DIFFICULTY FOLLOWING INSTRUCTIONS. HE'S PLEASANT AND COOPERATIVE BEST ABLE THOUGH. HE CONT'S IMPULSIVE OOB W/BED ALARM ON AND CAMERA MONITORING IN PLACE FOR FALL RISK. PT HAS HAD NEAR SYNCOPAL EPISODES W/NEWLY CONFIRMED ORTHOSTATIC HYPOTENSION. BP DROPPED AGAIN AT HS DURING ORTHOSTATIC MONITORING AND PT REPORTED DIZZYNESS SO STANDING VITALS COULDN'T BE SAFELY OBTAINED. BP DROPPED FROM 109/91 TO 83/48 FROM LYING TO SITTING. PT ASSISTED W/URINAL AND BSC USE INSTEAD OF AMBULATING INTO BATHROOM THIS SHIFT AND METOPROLOL WAS RECIEVED LATE RESULT OF INITIAL HYPOTENSION. HE CONT'S TO BE TACHY W/HR 89-120 BPM AND KNOWN HX AFIB. PT DENIES PAIN AND ALL OTHER COMPLAINTS. NO ACUTE CHANGES. WCTM/REPORT TO DAY RN.
--- NOTE | 2020-04-16 17:05 | NUR ---
04/16/20 s/w Domingo, son, He has not received a call from [facility] yet to apply for services. I asked him to call the DHS office to schedule appointment to apply for services. choose option 8. cp
--- NOTE | 2020-04-16 17:11 | NUR ---
SHIFT SUMMARY PT IS ALERT AND ORIENTED TO SELF, , AND CITY. PT IS PLEASANT BUT FORGETFULL AND IMPULSIVE. WILL TRY TO TRANSFER SELF W/O CALLING. PT IS A SBA TO BATHROOM OR CHAIR. PT HYPOTENSIVE IN THE AM AND MORING CARDIAC MEDICATION HELD. DOCTOR MADE AWARE. PT HAD A GOOD APITE THIS SHIFT. PT CURENTLY RESTING IN BED WITH CALL LIGHT NEXT TO HIM.
--- NOTE | 2020-04-16 19:10 | NUR ---
ASSUMED CARE RECEIVED REPORT FROM MIRI KNOX. PT ASLEEP, NO ACUTE DISTRESS NOTED. NO ACUTE NEEDS ASSESSED AT THIS TIME. CALL LIGHT, POSSESSIONS IN REACH, BED IN LOW POSITION WITH ALARMS ON. CONTINUE TO MONITOR.
--- NOTE | 2020-04-17 04:33 | NUR ---
SHIFT SUMMARY PT ASLEEP, IN NO ACUTE DISTRESS. NO ACUTE CHANGES IN CONDITION NOTED T/O NIGHT. VS REVIEWED, WNL, BP'S STABLE. PT HAS REMAINED IN BED T/O MUCH OF NIGHT. NO ACUTE NEEDS ASSESSED AT THIS TIME. CALL LIGHT AND POSSESSIONS IN REACH, BED IN LOW POSITION WITH ALARMS ON. CONTINUE TO MONITOR UNTIL REPORT GIVEN TO DAY RN.
--- NOTE | 2020-04-17 17:32 | NUR ---
NO AUCTE CHANGES THIS SHIFT. CONTINUES TO AWAIT PLACEMENT. AMBULATED MULTIPLE TIMES IN THE HALLS TODAY WITH GAIT BELT AND SBA. ORTHOSTATIC VS POSITIVE, BUT PATIENT DENIES DIZZINESS WHEN UP TODAY. CONTINENT/INCONTINENT. TOLERATING CARDIAC DIET. DENIES ANY PAIN OR DISCOMFORT. FALL PRECAUTIONS IN PLACE.
--- NOTE | 2020-04-17 18:40 | NUR ---
04/17/20 Julien being seen by Dr Rees this week through Wednesday. Awaiting Medicaid approval for placement in memory care. No eta discharge at this time. I will continue to follow for discharge planning. cp
--- NOTE | 2020-04-18 04:52 | NUR ---
SHIFT SUMMARY PT PLEASANTLY CONFUSED. IMPULSIVE. BUSY BODY. FREQUENTLY ATTEMPTING TO GET OUT OF BED WHEN AWAKE, TELLING STAFF HE HAS ONE THING OR ANOTHER TO BE DOING. BED ALARM ON FOR SAFETY. PT DECONDITIONED, APPEARS MALNOURISHED. ATE PART OF A SANDWICH THIS EVENING. NO COMPLAINTS OF PAIN. RA. PT IS DIFFICULT TO REDIRECT AT TIMES, FORGETS THINGS ALMOST INSTANTLY AFTER BEING TOLD BY STAFF. AWAITING PLACEMENT. VITAL SIGNS STABLE. WILL CONTINUE TO MONITOR.
--- NOTE | 2020-04-18 18:14 | NUR ---
NO ACUTE CHANGES THIS SHIFT. PATIENT CONTINUES TO AWAIT PLACEMENT. SPOKE WITH DAUGHTER MEMO AND SON PANDA WAS HERE THIS EVENING TO VISIT. PATIENT IS EATING WELL AND AMBULATING IN THE HALLS FREQUENTLY. CONTINUES TO WORK WITH PT. DENIES ANY PAIN OR DISCOMFORT. CONTINENT OF BOWEL AND BLADDER.
--- NOTE | 2020-04-19 05:00 | NUR ---
SHIFT SUMMARY PT CONTINUES TO BE CONFUSED AND IMPULSIVE. DIFFICULT TO REDIRECT AT TIMES. DOES NOT FOLLOW DIRECTIONS WELL. BED ALARM ON FOR SAFETY. PT DID NOT FALL ASLEEP UNTIL LATER IN THE SHIFT BUT HAS SLEPT WELL SINCE FALLING ASLEEP. WHILE AWAKE PT ALWAYS FEELS IF HE HAS SOMETHING TO DO. SETTING OFF BED ALARM FREQUENTLY. PT CONTINENT. HR MORE ELEVATED THIS EVENING IN THE LOWER 100'S, FEELING LIKE AFIB WITH RADIAL CHECK. PT IS IN CHRONIC AFIB. OTHERWISE NO ACUTE CHANGES. VITAL SIGNS STABLE. WILL CONTINUE TO MONITOR.
[2020-04-19 05:32] LABS: Anion Gap 8 mmol/L (6-16); Blood Urea Nitrogen 36 mg/dL (8-24); Bun/Creatinine Ratio 30.5 (12.0-20.0); CO2, Blood 22 mmol/L (21-32); Chloride, Blood 104 mmol/L (98-108); Creatinine, Blood 1.18 mg/dL (0.60-1.20); Glomerular Filtration Rate >60 (60-); Glucose, Blood 79 mg/dL (70-99); Potassium, Blood 4.8 mmol/L (3.5-5.5); Sodium, Blood 134 mmol/L (136-145)
--- NOTE | 2020-04-19 17:41 | NUR ---
SHIFT SUMMARY PATIENT DENIES PAIN, NAUSEA, AND SHORTNESS OF BREATH. PATIENT UP SBA IN ROOM. PATIENT VERY CONFUSED AND ATTEMPTING TO GET OUT OF CHAIR AND BED FREQUENTLY. EASILY AGITATED WHEN REDIRECTED. GIVEN PRN ZYPREXA X2. EATING AND DRINKING WELL. PENDING PLACEMENT.
--- NOTE | 2020-04-20 04:13 | NUR ---
SHIFT SUMMARY NO ACUTE CHANGES THIS SHIFT. PT HAS BEEN COOPERATIVE WITH CARE THOUGH IS CONFUSED AND TRIES TO EXIT BED WITHOUT CALLING. PT HAS UNSTEADY AND SHAKY GAIT. PT IS VERY [place] AND IS OFTEN NONSENSICAL WHEN TALKING. PT IS LAYING IN BED, EVEN AND UNLABORED RESPIRATIONS. BED IN LOWERED POSITION WITH ALARM IN PLACE. CALL LIGHT AND PERSONAL ITEMS WITH IN REACH. NO APPARENT NEEDS OR DISTRESS AT THIS TIME, WILL CONTINUE TO MONITOR UNTIL REPORT GIVEN TO DAY RN.
--- NOTE | 2020-04-20 16:46 | NUR ---
NO ACUTE CHANGES. PT REMAINS VERY CONFUSED AND CAN BE NON COMPLIANT . HE HAS RESTED MOST OF THE DAY WITH THE OCCASIONAL ATTEMPT TO WALK AROUND THE ROOM UNASSISTED. HE IS ON CAMERA AND HAS BED ALARM IN PLACE. CALL LIGHT WITHIN REACH AND WILL CONTINUE TO MONITOR
--- NOTE | 2020-04-21 04:18 | NUR ---
SHIFT SUMMARY NO ACUTE CHANGES THIS SHIFT. MEDICATED FOR AGITATION X1. PT WAS BEING VERBALLY ABUSIVE TO STAFF AND WAS DIFFICULT TO REDIRECT. ONCE STAFF WAS ABLE TO GET PT BACK INTO BED, PT SEEMED TO CALM A BIT. OTHERWISE PT SLEPT DECENTLY T/O NIGHT WITH NO OTHER COMPLAINTS/PROBLEMS. PT IS LAYING IN BED WITH EYES CLOSED, EVEN AND UNLABORED RESPIRATIONS. BED IN LOWERED POSITION WITH ALARM IN PLACE. CALL LIGHT AND PERSONAL ITEMS WITH IN REACH. NO APPARENT NEEDS OR DISTRESS AT THIS TIME, WILL CONTINUE TO MONITOR UNTIL REPORT GIVEN TO DAY RN.
--- NOTE | 2020-04-21 15:55 | NUR ---
PT REMAINS CONFUSED AND IS DIFFICULT TO REDIRECT AT TIMES WHICH COULD BE DUE TO THE FACT THAT HE IS VERY HARD OF HEARING. PT HAS SLEPT ON AND OFF. HE WILL GET HIMSELF OUT OF BED WITHOUT USING HIS CALL LIGHT MORE DUE TO CONFUSION THAT OUTRIGHT NONCOMPLIANCE. PT HAS BEEN CONTINENT THIS SHIFT WITH NO ACCUTE CHANGES. CALL LIGHT WITHIN REACH.
--- NOTE | 2020-04-22 04:45 | NUR ---
SHIFT SUMMARY ALERT TO SELF. DIFFICULTY FOLLOWING SIMPLE COMMANDS. AGUA CALIENTE. CONFUSED WHICH IS BASELINE. SLID DOWN HIDA-BED TO FLOOR; NOTED A FALL. SUSTAINED ABRASION TO R FORHEAD. NO CHANGE IN CONDITION. CT SCAN ORDERED BY ON-CALL PROVIDER; WNL. CONTINUALLY ATTEMPTING TO EXIT BED WITH FREQUENT RE-DIRECTIONS; FOR SAFETY PLACED IN BENNETT VEST. REMAINS HYPOTENSIVE; ALL OTHER VS WITHIN REACH. DID NOT SLEEP AT ALL T/O NIGHT. BED REMAINED IN LOWEST POSITION; ALARM ON. CALL LIGHT WITHIN REACH. AWAITING PLACEMENT. CONTINUE WITH CURRENT PLAN OF CARE. REPORT TO ONCOMING RN.
--- NOTE | 2020-04-22 15:40 | NUR ---
ADMIT:04/03/20 DISCHARGE: DX: afib, chf CC: cpeabody Page 2 TRANG CALL: Will require placment due to memory deficets RESIDENCE: [facility] case managment is looking for care home care, memory. CAREGIVER: no hippa contacts EFSaleem Estrada [phone]- Friend, will be ride home from Hospital. PANDA LEON [phone]. SON. Medicaid nurse case management - [facility]. DX: htn, copd, hearing loss, AFIB, CHF, see list. DME: no record CCM: no record HOME HEALTH: no record SUMMARY: ADMIT 04/03/20 04/22/20 Rao Mallory was asked to assess Julien today by floor nurse. I asked Juliens permission to allow them to come in to see him. He agreed. c Julien is currently in restrainst due to wanting to leave. cp s/w Panda, son, he has completed application with [employer], He s/w [facility]. [facility] says at least 10 days for completion of applicaton.
--- NOTE | 2020-04-22 16:42 | NUR ---
PT IS ALERT. HE IS EATING AND DRINKING WELL. HE IS IN A BENNETT VEST. HE KEEPS TRYING TO GET OUT OF BED. HE IS DIFFICULT TO REDIRECT. DADA TURNER INTERVIEWED HIM TODAY. HE RECIEVED A BED BATH TODAY. HE IS ON CAMERA. HIS BED IS IN THE LOW POSITION AND CALL LIGHT IS WITHIN REACH.
--- NOTE | 2020-04-22 20:56 | NUR ---
ASSUMPTION OF CARE. ALERT ORIENTED TO SELF, TALKING TO SELF, FOLLOWS SOME DIRECTIONS. DURING ASSESSMENT HE DID NOT ANSWER ANY QUESTIONS JUST KEPT DOING WHAT HE WAS DOING, LOOKING AT HIS GOWN TALKING AWAY. LUNG SOUNDS CLEAR, HR IRREGULAR AFIB. SOME ABRASIONS ON BILATERAL KNEES, AND FOREHEAD. NO SIGN OF PAIN OR DISCOMFORT. POSY VEST IN PLACE DUE TO FALL LAST NIGHT. HE IS NICE AND CALM AT THIS TIME. WILL CONTINUE TO MONITOR. CALL LIGHT IS IN REACH, BED ALARM IS ON.
--- NOTE | 2020-04-23 05:22 | NUR ---
SHIFT SUMMARY: PLEASANTLY CONFUSED, HAS BEEN LAYING IN BED ALL NIGHT. AWAKE HERE AND THERE. AO TO SELF ONLY, TALKING TO SELF, AND HAVING HULLUCINATIONS. POSY STILL IN PLACE DUE TO RISK OF FALLS. HAS SLEPT OFF AND ON. VS WNL, AFEBRILE. AWAITING PLACEMENT. NO OTHER ACUTE CHANGES TO NOTE THIS SHIFT. CALL LIGHT IS IN REACH.
--- NOTE | 2020-04-23 17:33 | NUR ---
SHIFT SUMMARY PT WAS VERY SLEEPY THIS AM AND FINALLY WOKE UP AFTER LUNCH. PT HAS BEEN AWAKE, PLEASANTLY CONFUSED, AND COOPERATIVE SINCE AFTER LUNCH. PT DOES TRY TO GET OUT OF BED CONTINUOUSLY. VEST IN PLACE. PT DRINKING FLUIDS WELL WITH ASSIST. NO ACUTE CHANGES THIS SHIFT. WILL CONTINUE TO MONITOR AND REPORT TO ONCOMING RN. CALL LIGHT IN REACH. BED ALARM ON FOR SAFETY.
--- NOTE | 2020-04-23 19:22 | NUR ---
ASSUMPTION OF CARE. EILEEN FOUND SITTING UP IN BED SLEEPING, VERY SLEEPY, TRIED TO OPEN EYES WHEN HIS NAME WAS CALLED BUT DIDN'T. HAD TO TAP ON HIS CHEST AND RUB IT TO GET HIM TO RESPOND BETTER. HE THEN MOVED HIS ARMS AND SAID "WHAT". HE DID TAKE A DRINK FOR ME BUT THAT WAS IT. HES NOT WAKING UP TO EVEN EAT DINNER. POSI VEST STILL ON, DAYSHIFT SAID HE WOKE UP AND DID TRY TO GET OUT OF BED. WILL MONITOR HIM T/O THE NIGHT, AT THIS POINT HES NOT AWAKE ENOUGHT TO TAKE MEDS. BED ALARM IS ON.
--- NOTE | 2020-04-23 19:33 | NUR ---
Pt somultent today with some periods of interaction. Met with son thei evening to review his care needs. Pt son states he lives alone in a two caryn apartment. He wi working with career portals teacher on memeory care placement. Review of his labs and progress notes. Carefully went over his cardiac fuction and disease and dementia. Plan is placement and we discussed hospice. So was open to that plan as it would reduce his hospitilizations and hoefully allow a better quality of life.Advised he can set that up after he is in memory care facility and the staff will help with deciding when the time is right. Assited the son with some of his dosucments will update caremanager on pt needs.
--- NOTE | 2020-04-24 00:07 | NUR ---
EILEEN WOKE UP EARLIER SO GAVE HIM HIS DINNER TRAY. AT WHICH HE HAS BEEN EATING VERY SLOWLY THE LAST 3 HOURS. HE APPEARS TO BE VERY CONTENT. HAS EATEN ALMOST ALL OF HIS MEAL, WATCHING TV.
--- NOTE | 2020-04-24 05:34 | NUR ---
SHIFT SUMMARY: EILEEN WAS REALLY TIRED AND OUT OF IT AT START OF SHIFT, WOULD ONLY RESPOND TO CHEST BEING RUBBED. LATER HE WOKE UP AND WATCHED TV WHILE EATING ALL OF HIS DINNER FOR THREE HOURS. AFTERWARDS WE GOT HIM READY FOR BED AT WHICH HE SLEPT THE REST OF THE NIGHT. POSI VEST STILL IN PLACE. VS WNL, AFEBRILE. NO CHANGES TO REPORT. CALL LIGHT IS IN REACH.
--- NOTE | 2020-04-24 18:13 | NUR ---
SHIFT SUMMARY PT HAS BEEN PLEASANTLY CONFUSED ALL SHIFT. PT WORKED WITH PHYSICAL THERAPY AND IS DIFFICULT TO DIRECT. PT HAS HAD A GOOD APPETITE TODAY. EATING ALL MEALS WITH SET UP ASSISTANCE. INCONTINENT OF URINE BUT WAS UP TO BSC FOR BM. NO ACUTE CHANGES THIS SHIFT. PT CONTINUES TO BE IN VEST RESTRAINT DUE TO PT CONTINUOUSLY TRYING TO GET OUT OF BED. CALL LIGHT IN REACH. BED ALARM ON FOR SAFETY. WILL CONTINUE TO MONITOR AND REPORT TO ONCOMING RN.
--- NOTE | 2020-04-25 04:11 | NUR ---
SUMMARY NO ISSUES NOTED. PT REMAINS CONFUSED. PT HAS SLEPT T/O SHIFT. PT CURRENTLY SLEEPING AND IN NO DISTRESS. CALL LIGHT IN REACH AND BED ALARM ON.
--- NOTE | 2020-04-25 17:38 | NUR ---
04/25/20 s/w Raúl at [facility] about assessment completed on 04/22/20. She felt the assessment went well but needs a packet to assess his medical condition. Faxed Packet today to Rao. Still waiting for Medicaid approval for payment of placement. Will follow for discharge planning. cp
--- NOTE | 2020-04-25 18:40 | NUR ---
SHIFT SUMMARY PT HAS BEEN AWAKE ALL SHIFT AND VERY ACTIVE WITH TRYING TO GET OUT OF BED WITH RESTRAINTS ON. PT IS VERY CONFUSED AND DIFFICULT TO REDIRECT AT TIMES BUT IS PLEASANT. PT HAS HAD A GOOD APPETITE. PT AMBULATED IN PHYSICAL THERAPY WITH PHYSICAL THERAPY THIS AFTERNOON. UP IN CHAIR FOR DINNER. NO ACUTE CHANGES AT THIS TIME. WAITING FOR PLACEMENT. CALL LIGHT IN REACH. BED ALARM ON FOR SAFETY. WILL CONTINUE TO MONITOR AND REPORT TO ONCOMING RN.
--- NOTE | 2020-04-26 03:23 | NUR ---
SUMMARY PT REMAINS CONFUSED. PT HAD NO NEW ISSUES NOTED. PT CONTINUES TO TRY TO GET OUT OF BED. PT HAS SLEPT WELL T/O SHIFT. PT CURRENTLY SLEEPING AND BREATHING EASY. CALL LIGHT IN REACH AND BED ALARM ON.
--- NOTE | 2020-04-26 18:30 | NUR ---
SHIFT SUMMARY PT AXO TO SELF ONLY THROUGHOUT MOST OF THE SHIFT. VSS. PT RESPONDS TO NURSE WITH NONSENSICAL STATEMENTS, DIFFICULT TO REDIRECT. PT DENIES PAIN, APPEARS ABSENT OF INDICATORS OF PAIN. BENNETT IN PLACE THIS SHIFT, SEE DOCUMENTATION. NO OTHER CHANGES THIS SHIFT. PT UP TO RECLINER FOR MOST OF THE SHIFT. BED IN LOW POSITION, CALL LIGHT WITHIN REACH, BED ALARM ON. ON CAMERA. MEDS CRUSHED IN APPLESAUCE.
--- NOTE | 2020-04-27 05:10 | NUR ---
PATIENT AWAKE ALL NIGHT HAVING BOTH AUDIO AND VISUAL HALLUCINATIONS. VERY PLEASANT, BUT FOR THE MOST PART, OBLIVIOUS TO ALL COBY ON IN ROOM, STAFF AND ACTIVITIES SUCH CHANGING DIAPERS. HE DID TAKE A FEW SIPS OF GATORADE EACH TIME WE WOULD ENTER ROOM. NO VISIBLE SIGNS OF DISCOMFORT OVERNIGHT.
--- NOTE | 2020-04-27 09:20 | NUR ---
D/C METOPROLOL REVIEWED ORTHO VITALS THIS MORNING WITH DR. DEY. RECEIVED T.O. TO D/C METOPROLOL SUCCINATE. ORDER UPDATED.
--- NOTE | 2020-04-27 14:00 | NUR ---
D/C LISINOPRIL AND LASIX D/T POSITIVE ORTHOSTATIC HYPOTENSION, DR. DEY GAVE V.O. TO D/C LISINOPRIL AND LASIX. ORDERS UPDATED.
--- NOTE | 2020-04-27 14:59 | NUR ---
DC ORTHOSTATIC VITALS PER V.O. FROM DR. DEY, DC ORTHO VITALS
--- NOTE | 2020-04-27 17:19 | NUR ---
Shift Summary A/O to self and family. Daughter visited briefly today. Patient still in shante for safety. Impulsive, ripping off attends, attempting to climb out of bed. Patient woke up after a nap and was agitated stating "I hid my fries here (pointing to the blanket) and someone stole it! I am starving!" This RN brought in a sandwich, patient claimed it was poisoned and refused to eat it. Denali mentioning, there were no fries ordered for meals. Patient is positive for orthostatic hypotension, Dr. Anderson is aware, cardiac meds and diuretics d/c. Patient mumbling and talking to self in room, extremely confused. TM
--- NOTE | 2020-04-27 18:58 | NUR ---
METOPROLOL TARTRATE RECEIVED T.O. FROM DR. DEY TO GIVE ONE TIME DOSE OF METROPROLOL TARTRATE. ORDER UPDATED.
--- NOTE | 2020-04-28 04:22 | NUR ---
SUMMARY: PT ORIENTED TO SELF ONLY AND HAS DIFFICULTY FOLLOWING INSTRUCTION OR ANSWERING Q'S ASKED OF HIM. HE SPEAKS MOSTLY NONSENSICALLY AND IS OFTEN HEARD TALKING TO HIMSELF. IT APPEARS PT IS HALLUCINATING AT TIMES CLAIMING TO HAVE CONVERSATIONS W/PEOPLE WHO ARE NOT PRESENT IN ROOM. BENNETT VEST INTACT AND BED ALARM ON FOR FALL RISK, IMPULSIVITY AND POSTURAL HYPOTENSION. X1 PO LOPRESSOR RECIEVED AT HS FOR HR 137 BPM AND IT IMPROVED TO 90'S BPM. LOW 100'S NOTED AGAIN THIS AM BUT MD HAS NOW RX'D SCHEDULED LOPRESSOR BID TO COMMENCE THIS AM. PT ASSISTED W/REPOSITIONING D/T BENNETT VEST BUT HE REMAINS VERY FIGITY IN BED. ATTENDS CHANGED PRN FOR URINARY INCONTINENCE AND FULL LINEN CHANGES REQUIRED FOR SATURATION. NO ACUTE CHANGES, VSS/AFEBRILE. WCTM AND REPORT TO DAY RN. PLACEMENT PENDING.
[2020-04-28 05:45] LABS: BASOPHILS ABSOLUTE AUTO 0.04 K/mm3 (0.00-0.23); BASOPHILS PERCENT AUTO 1 % (0-2); EOSINOPHILS ABSOLUTE AUTO 0.14 K/mm3 (0.00-0.68); EOSINOPHILS PERCENT AUTO 2 % (0-6); Hematocrit 40.8 % (37.0-53.0); Hemoglobin 13.9 g/dL (13.5-17.5); IMMATURE GRAN ABSOLUTE AUTO 0.03 K/mm3 (0.00-0.10); IMMATURE GRAN PERCENT AUTO 0 % (0-1); LYMPHOCYTES ABSOLUTE AUTO 2.91 K/mm3 (0.84-5.20); LYMPHOCYTES PERCENT AUTO 38 % (21-46); MONOCYTES ABSOLUTE AUTO 0.73 K/mm3 (0.16-1.47); MONOCYTES PERCENT AUTO 10 % (4-13); Mean Corpuscular HGB 30.7 pg (26.0-34.0); Mean Corpuscular HGB Conc 34.1 g/dL (31.5-36.5); Mean Corpuscular Volume 90 fL (80-100); Mean Platelet Volume 9.9 fL (9.1-12.4); NEUTROPHILS ABSOLUTE AUTO 3.75 K/mm3 (1.96-9.15); NEUTROPHILS PERCENT AUTO 49 % (41-73); Platelet Count 205 K/mm3 (150-400); RDW Coefficient Variation 16.3 % (11.7-14.2); RDW Standard Deviation 53.5 fL (35.1-46.3); Red Blood Cell Count 4.53 M/mm3 (4.30-5.90)
[2020-04-28 06:06] LABS: Albumin, Blood 2.3 g/dL (3.4-5.0); Albumin/Globulin Ratio 0.6 (0.8-1.8); Calcium, Blood 8.5 mg/dL (8.5-10.1); Creatinine, Blood 1.36 mg/dL (0.60-1.20); Globulin, Blood 3.8 g/dL (2.2-4.0); Potassium, Blood 4.3 mmol/L (3.5-5.5); Total Protein, Blood 6.1 g/dL (6.4-8.2)
--- NOTE | 2020-04-28 13:41 | NUR ---
D/C OXIMETRY V.O. FROM DR. DEY TO D/C OXIMETRY. ORDER UPDATED.
--- NOTE | 2020-04-28 16:58 | NUR ---
Shift Summary Up in chair for most meals. Appetite is better today compared to yesterday. Still extremely confused and pulling off brief. Incontinent. No new changes, WCTM.
--- NOTE | 2020-04-29 05:03 | NUR ---
SUMMARY: PT ORIENTED TO SELF ONLY AND IS PLEASANT AND COOPERATIVE W/CARE BUT CONT'S TO HAVE DIFFICULTY FOLLOWING INSTRUCTION AND CONVERSATING APPROPRIATELY. RESPONSES TO Q'S ARE NONSENSICAL AND PT TALKS TO SELF IN ROOM WHEN AWAKE. IT IS QUESTIONABLE WHETHER HE'S HALLUCINATING. BED ALARM AND BENNETT VEST REMAIN INTACT FOR FALL RISK, IMPULSIVITY AND HX POSTURAL HYPOTENSION. HR SEEMS TO BE IMPROVING W/SCHEDULED LOPRESSOR BID, NOW 80'S T/O NOCTE W/BP STABLE. ATTENDS AND LINEN CHANGED FOR URINARY INCONTINENCE AND CREAM APPLIED FOR ITCHY SKIN. PT HAS SCATTERED ABRASIONS FROM SCRATCHING EXT'S. VSS AND AFEBRILE W/NO ACUTE CHANGES. PLACEMENT PENDING. WCTM AND REPORT TO DAY RN.
--- NOTE | 2020-04-29 18:25 | NUR ---
SHIFT SUMMARY: NO ACUTE CHANGES TO REPORT THIS SHIFT. PT ALERT; ORIENTED TO SELF; COOPERATIVE WITH CARE. NO C/O PAIN THIS SHIFT. BENNETT VEST IN PLACE R/T HIGH FALL RISK & POSTURAL HYPOTENSION. ASPIRATION PRECAUTIONS; PO MEDS CRUSHED IN APPLE SAUCE. AWAITING PLACEMENT. WCTM.
--- NOTE | 2020-04-30 13:01 | NUR ---
04/30/20 S/W SANTO ALEJO MCM [phone] IS LISTED THE [employer] FOR MEDICAID. I LEFT A MESSAGE FOR SANTO TODAY TO FOLLOW UP ON THE PROGRESS OF HIS CLAIM. FAXED MOVE IN ORDERS FOR DADA TURNER TO DR ARIAS TO COMPLETE AND SIGN. CP
--- NOTE | 2020-04-30 14:20 | NUR ---
14:17 s/w Radha at [employer]. Requested chart notes for physical assessment. I faxed her a packet today. Financial assessement should be done on 05/04/20, she will start now on physical assessment so hopefully a decsion will be made soon. Updated Radha on [facility] and move in orders requested. Updated Son Domingo by phone on current status Updated [facility] management. cp
--- NOTE | 2020-04-30 19:26 | NUR ---
SHIFT SUMMARY: NO ACUTE EVENTS TO REPORT THIS SHIFT. PT ALERT; ORIENTED TO SELF; COOPERATIVE WITH CARE. NONSENSICAL SPEECH. NO C/O PAIN THIS SHIFT/ PT IN NO APPARENT DISTRESS. BENNETT VEST IN PLACE R/T CONFUSION & HIGH FALL RISK. AWAITING PLACEMENT IN MEMORY CARE. REPORT GIVEN TO ONCOMING RN.
--- NOTE | 2020-05-01 01:44 | NUR ---
05/02/20 0130 AWAKENED FOR ROUTINE ROUNDS AND ATTENDS CHANGED WITH SMALL AMT OF URINE. REPOSITIONED TO RT SIDE WITH PILLOWS. OFFERED ORAL INTAKE BUT DECLINED FOR NOW.
--- NOTE | 2020-05-01 05:06 | NUR ---
05/01/20 0510 PT SLEPT BETTER THIS NIGHT COMPARED TO PREVIOUS NIGHT. STILL HAVING HALLUCINATIONS. VITALS STABLE. DENIES PAIN. BENNETT VEST MAINTAINED FOR SAFETY.
--- NOTE | 2020-05-01 15:49 | NUR ---
SUMMARY PT IS VERY CONFUSED/DISORIENTED, FORGETFUL. AGDAAGUX. HE HAS X'S WHERE HE IS PLEASANT, CALM & X'S WHEN HE IS AGITATED, ANGRY, ATTEMPTING TO WANDER, NOT REDIRECTABLE. HAVE GIVEN PRN ZYPREXA THIS AFTERNOON TO CONTROL AGITATION. HE CONTINUES IN RESTRAINT R/T CONFUSION, AGITAITION, ATTEMPTS TO WANDER. HE CONTINUES HIGH FALL RISK, VERY UNSTEADY GAIT, 2 ASSIST. HE HAS BEEN UP IN CHAIR FOR MEALS, REQUIRES SUPERVISION. DR AGUAYO IN THIS AM, STTE CONTINUING TO AWAIT SAFE PLACEMENT. VSS, HR IRREG 70-80'S.
--- NOTE | 2020-05-02 05:46 | NUR ---
PRODUCT ENGINEERING MANAGER SUMMARY NO ACUTE CHANGES THIS SHIFT. PT AAOX1, FOLLOWS SOME DIRECTION BUT MOSTLY SPEAKS NONSENSICALLY. PT HAS SLEPT MOST OF THE SHIFT TONIGHT AND WHEN HE IS AWAKE HE LAYS IN BED TALKING TO HIMSELF. REMAINS IN BENNETT VEST RESTRAINT PT DOES TRY TO GET OOB AT TIMES AND IS A HIGH FALL RISK. HAD LARGE BM THIS AM, ATTENDS AND LINENS CHANGED. VSS, WILL CONTINUE TO MONITOR.
--- NOTE | 2020-05-02 10:44 | NUR ---
05/02/20 Met with Raúl and Erika from [facility], they were reveiwing another patient, wanted to check in again on Larrys current status. Told her I s/w skilled nursing case manager at [employer], Financials complete on the . cp 05/01/20 s/w Brenda at [facility] in [place], she has openings and would like to schedule a zoom meeting to review him. I am waiting to hear from Raúl if he has been accepted. cp
--- NOTE | 2020-05-02 18:21 | NUR ---
SHIFT SUMMARY EILEEN WAS VERY WITHDRAWN TODAY, DIDN'T WANT TO DO MUCH. FINALLY ABLE TO GET HIM OOB TO CHAIR FOR DINNER WITH AO2 HE WASN'T PARTICIPATING MUCH. FAIR APPETITE. INCONTINENT, BRIEFS CHANGED REGULARLY. RESTRAINTS TAKEN OFF AT 1130 THIS MORNING, NO ATTEMPTS TO GET OOB AFTER THIS. TOOK PILLS ONE AT A TIME WITH APPLESAUCE WELL. DENIED PAIN. CALL LIGHT IN REACH, CHAIR ALARM ON, TM
--- NOTE | 2020-05-03 05:09 | NUR ---
RN PLACEMENT SUMMARY AAOX1, VERY CONFUSED AND IMPULSIVE BUT PLEASANT AND EASILY REDIRECTED. RESTRAINTS HAVE REMAINED OFF THROUGH THE NIGHT. PT ATTEMPTS TO GET OUT OF BED A FEW TIMES BUT IS EASILY DIRECTED BACK TO BED. HS DOSE OF METOPROLOL HELD DUE TO SBP OF 92. SBP 110'S THIS AM. OTHER VSS, WILL CONTINUE TO MONITOR.
--- NOTE | 2020-05-03 15:38 | NUR ---
called dr burnett of heart rate between 120-140, he wants night time dose of po metoprolol given now, and recheck HR in one hour
--- NOTE | 2020-05-03 19:20 | NUR ---
SHIFT SUMMARY EILEEN DENIED PAIN THIS SHIFT. INCONTINENT URINE, CONTINENT STOOL IN BRM. SBA WITH GAIT BELT TO BR, HAD BM IN TOILET. TOOK PILLS IN APPLESAUCE. HAD HR OF 125-135 AT AFTERNOON VS CHECK, CALLED DR TY, HE ORDERED PO METOP EVENING DOSE GIVEN EARLY AND RECHECK HR. AT ONE HOUR RECHECK, HR AROUND 100-110 AVERAGE. ATE MEALS WELL IF TRAY LEFT FOR AT LEAST AN HOUR, SLOW EATER. STILL OUT OF RESTRAINTS, SET OFF BED ALARM 2-3 TIMES WHEN HE NEEDED TO GET UP TO USE BATHROOM, BUT STAYED MOSTLY STATIONARY OTHERWISE.
--- NOTE | 2020-05-03 19:34 | NUR ---
BED ALARM ACTIVATED WITH LEGS TO SIDE OF BED PER CAMERA TECH. PATIET BACK INTO BED AND ALARM ACTIVATED.
--- NOTE | 2020-05-04 04:07 | NUR ---
SHIFT SUMMARY PATIENT HAD NO ACUTE CHANGES OBSERVED. AXO TO SELF WITH NONSENSICAL SPEECH. 1-2 ASSIST WITH GAIT BELT TO BSC. TAKES MEDICATION WHOLE IN APPLESAUCE. ACTIVATED BED ALARM X TWO WITH LEGS OUT OF BED ON CAMERA. PATIENT ASSISTED BACK INTO BED. NO IV ACCESS. DENIES PAIN, SOB, AND N/V. [place]. PULLS ATTENDS OFF. UP MOST OF THE SHIFT. CALL LIGHT IN REACH. BED IN LOWEST POSITION AND ALARM ACTIVATED. WILL CONTINUE TO MONITOR UNTIL DAY SHIFT NURSE ASSUMES CARE.
--- NOTE | 2020-05-05 04:01 | NUR ---
SHIFT SUMMARY PATIENT HAD NO ACUTE CHANGES OBSERVED. ALERT TO SELF WITH NONSENSICAL SPEECH. [place] AND HX SEVERE DEMENTIA. NO IV ACCESS AND ON CAMERA MONITORING. DENIES PAIN, SOB, AND N/V. HR RANGE FROM 126 DOWN TO 85 WITH HX AFIB. MIDNIGHT LOPRESSOR 25 MG PO STARTED THIS SHIFT. CALL LIGHT IN REACH. BED IN LOWEST POSITION AND BED ALARM ACTIVATED. WILL CONTINUE TO MONITOR UNTIL DAY SHIFT NURSE ASSUMES CARE.
--- NOTE | 2020-05-05 19:58 | NUR ---
PATIENT OOB X 3 BED EXITS, ALARMS ON, CAMERA MONITORING LAST FORTY-FIVE MINUTES. ALERT TO SELF AND NOT FOLLOWING DIRECTIONS AT THIS TIME. BACK INTO BED.
--- NOTE | 2020-05-06 02:37 | NUR ---
PATIENT HAVING INCREASED AGITATION PULLING OFF ATTENDS AND COVERS. OOB ATTEMPT ACTIVATING BED ALARM. ON CAMERA MONITORING. ZYPREXA PO 5MG GIVEN X TWO THIS SHIFT. HAS BEEN AWAKE MOST OF THE SHIFT. CALL LIGHT IN REACH.
--- NOTE | 2020-05-06 03:19 | NUR ---
SHIFT SUMMARY PATIENT STAYED UP T/O THE SHIFT. INCREASED AGITATION AT TIMES PULLING ATTENDS OFF AND COVERS OFF BED. ZYPREXA PO 5MG GIVEN X TWO. ALERT TO SELF AND TWO ASSIST TO BSC. BED ALARM AND CAMERA MONITORING. MULTIPLE OOB EVENTS ATTEMPTS T/O SHIFT. DOES NOT FOLLOW DIRECTIONS. NONSENSICAL SPEECH. VSS/AFEBRILE. HX AFIB WITH HR 99. PO LOPRESSOR 25 MG GIVEN X TWO SCHEDULED. CALL LIGHT IN REACH. BED IN LOWEST POSITION. WILL CONTINUE TO MONITOR UNTIL DAY SHIFT NURSE ASSUMES CARE.
--- NOTE | 2020-05-06 16:55 | NUR ---
05/06/20 s/w Erika at [facility], updated her on Medicaid status as of last weeks call with Radha at [facility]. I will call Radha again to confirm receipt of medical records and status of financial, was he approved?? cp
--- NOTE | 2020-05-06 17:17 | NUR ---
PATIENT IS ALERT TO SELF. HE GOT UP TO THE RECLINER FOR A COUPLD HOURS TODAY. HE IS INCONTINENT OF BOWEL AND BLADDER. ATTENDS ARE IN PLACE. PATIENT FOLLOWS DIRECTIONS POORLY. NO C/O PAIN. PATIENT HAS SLEPT MOST OF THE DAY. PATIENT HAS A GOOD APPETITE. WILL CONTINUE TO MONITOR
--- NOTE | 2020-05-07 01:35 | NUR ---
: PATIENT HAS NOT VOIDED IN 9 HOURS, BLADDER SCAN SHOWS 405ML. DR ARENAS IS CALLED AND ORDER RECIEVED TO STRAIGHT CATH NOW AND RECHECK IN 6 HOURS, IF STILL RETAINING PLACE PACE. UNABLE TO STRAIGHT CATH DUE TO ENLARGE PROSTATE. ROZ RONDON RN CHARGE IS NOTIFIED AND COMES TO ROOM TO ASSIST WITH DRAINING BLADDER. COUDE 14 FR IS PLACED AND LEFT IN DUE TO BLEEDING. PATIENT IS ON XARELTO. SMALL CLOT OBSERVED IN TUBE UPON PLACEMENT. YELLOW URINE IS NOW DRAINING.
[2020-05-07 02:46] LABS: Source, Urine Catheter
[2020-05-07 02:47] LABS: Bilirubin, Urine Neg (Neg); Blood, Urine 1+ (Neg); Glucose Qualitative, Urine Neg (Neg); Ketones, Urine 1+ (Neg); Leukocyte Esterase, Urine 1+ (Neg); Nitrite, Urine Neg (Neg); Protein, Urine 2+ (Neg); Specific Gravity, Urine 1.015 (1.003-1.022); Urobilinogen, Urine 1+ (Normal)
[2020-05-07 02:53] LABS: Appearance, Urine Clear (Clear); Color, Urine Yellow (P-Yellow)
[2020-05-07 02:54] LABS: Bacteria Few /hpf; Red Blood Cells, Urine 0-2 /hpf (0-2); Squamous Epithelial Cells Not Seen /hpf (Few)
--- NOTE | 2020-05-07 06:50 | NUR ---
SHIFT SUMMARY: PATIENT REMAINS CONFUSED, PACE CONTINUES TO DRAIN LIGHT JAYSON URINE, NO CLOTS. SMALL AMT. OF BLEEDING AT THE URINARY MEATUS. VSS, POOR PO INTAKE. BED ALARM IS ON FOR SAFETY.
--- NOTE | 2020-05-07 10:00 | NUR ---
ADMIT:04/03/20 DISCHARGE: DX: afib, chf CC: cpeabody Page 2 TRANG CALL: Will require placment due to memory deficets RESIDENCE: [facility] case managment is looking for ad terminal makeup operator care, memory. CAREGIVER: no hippa contacts EFSaleem Estrada [phone]- Friend, will be ride home from Hospital. PANDA LEON [phone]. SON. Medicaid caseworker protective services - Radha Tran [phone] DX: htn, copd, hearing loss, AFIB, CHF, see list. DME: no record CCM: no record HOME HEALTH: no record SUMMARY: ADMIT 04/03/20 05/07/20 Tried to reach Radha, caseworker protective services, medicaid. Voice mail box is full, I will keep calling. pattie 05/06/20 s/w Erika at [facility], updated her on Medicaid status as of last weeks call with Radha at [facility]. I will call Radha again to confirm receipt of medical records and status of financial, was he approved?? pattie
--- NOTE | 2020-05-07 17:07 | NUR ---
Shift Summary A/O to self. Patient remained in bed and was cooperative with care. Medium formed brown bm today. Carvalho patent and draining, some red urine noted catheter. Patient does attempt to pull on carvalho sometimes, remote monitor on and notifies staff of this. Patient is tachycardic, on metoprolol. No other acute changes, no issues with pain or nausea. Appetite is poor. WCTM.
--- NOTE | 2020-05-08 04:34 | NUR ---
SHIFT SUMMARY NO ACUTE CHANGES THIS EVENING. PT WITH SEVERE DEMENTIA. CANNOT HAVE A MEANINGFUL CONVERSATION. DOES NOT FOLLOW DIRECTIONS. AWAKE OFF AND ON THIS EVENING. PULLING OFF ATTENDS OR FIDGETING WITH THINGS WHILE AWAKE. SOME BLOOD NOTED WHILE WIPING RECTUM. APPEARS PT CAUSED SOME MINOR TRAUMA WHILE DIGGING AT STOOL. PACE CATHETER IN PLACE. LOW OUTPUT WITH DARK URINE. PT HAS NOT BEEN OUT OF BED. SEVERAL SMALL BM'S THIS EVENING. PT HAD A MOSTLY UNEVENTFUL NIGHT. VITAL SIGNS STABLE. WILL CONTINUE TO MONITOR.
--- NOTE | 2020-05-08 16:27 | NUR ---
Shift Summary Pleasant and cooperative. Giraldo still patent and draining dark kimani urine. Resting comfortably in bed. Camera on. No acute changes, WCTM.
--- NOTE | 2020-05-09 05:27 | NUR ---
SHIFT SUMMARY PATIENT ALERT AND ORIENTED TO SELF. HAD NO COMPLAINTS OF CHEST PAIN OR SHORTNESS OF BREATH. SLEPT WELL OVERNIGHT. BED IN LOWEST POSITION WITH WHEELS LOCKED AND ALARM ON. CALL LIGHT WITHIN REACH. REPORT GIVEN TO ONCOMING RN.
[2020-05-09 06:41] LABS: Bun/Creatinine Ratio 56.8 (12.0-20.0); Calcium, Blood 8.8 mg/dL (8.5-10.1); Creatinine, Blood 1.39 mg/dL (0.60-1.20); Potassium, Blood 4.7 mmol/L (3.5-5.5)
--- NOTE | 2020-05-09 18:00 | NUR ---
PT SETTING OFF HIS BED ALARM REPEATEDLY, HARD TO REDIRECT. ASSISTED UP TO BEDSIDE RECLINER. HE HAS BEEN MORE CONTENT IN THE CHAIR. PT REMAINS CONFUSED, PACE CATH IN PLACE, DRAINING WELL. POOR PO INTAKE TODAY, FLUIDS ENCOURAGED. NO ACUTE CHANGES NOTED THIS SHIFT, WILL CONTINUE TO MONITOR AND REPORT TO ONCOMING RN
--- NOTE | 2020-05-09 18:49 | NUR ---
ADMIT:04/03/20 DISCHARGE: DX: afib, chf CC: [email or web address] Page 2 TRANG CALL: Will require placment due to memory deficets RESIDENCE: [facility] case managment is looking for [facility] care, memory. CAREGIVER: no hippa contacts EFSaleem Estrada [phone]- Friend, will be ride home from Hospital. PANDA LEON [phone]. SON. Medicaid case consultant - Radha Tran [phone] DX: htn, copd, hearing loss, AFIB, CHF, see list. DME: no record CCM: no record HOME HEALTH: no record SUMMARY: ADMIT 04/03/20 05/09/20 Left message for Radha starr for update on medicaid status. Renita MORALES was in contact with Rao starr and sent Raúl updated notes on Larrys condition. Renita states that ronald may be appropriate for bin placment until medicaid is approved.
--- NOTE | 2020-05-10 05:11 | NUR ---
SHIFT SUMMARY PATIENT ALERT AND ORIENTED TO SELF ONLY. DIFFICULT TO REDIRECT. HAD NO COMPLAINTS OF CHEST PAIN OR SHORTNESS OF BREATH. SLEPT WELL OVERNIGHT. BED IN LOWEST POSITION WITH WHEELS LOCKED AND ALARM ON. CALL LIGHT WITHIN REACH. REPORT GIVEN TO ONCOMING RN.
--- NOTE | 2020-05-10 18:46 | NUR ---
PT ALERT AND ORIENTED TO SELF, VERY [place]. ON CAMERA AND BED ALARM ARMED. PT CAN BE IMPULSIVE AND IS DIFFICULT TO REDIRECT. SLEPT OFF AND ON THIS SHIFT. DOES NOT EAT WELL ON HIS OWN, DOES BETTER WITH ENCOURAGEMENT AND ASSISTANCE. PACE FOR RETENTION IN PLACE AND DRAINING WELL. BED IN LOWEST POSITIION, WILL CONTINUE TO MONITOR AND REPORT TO ONCOMING RN
--- NOTE | 2020-05-11 05:33 | NUR ---
SHIFT SUMMARY: A/O TO SELF. PLEASANTLY CONFUSED. FREQUENTLY TALKS TO SELF AND CALLS OUT NAMES AND TALKS TO PEOPLE NOT ACTUALLY PRESENT IN ROOM. OCCASIONALLY SWEARS AT STAFF BUT IS MOSTLY GOOD HUMORED AND LAUGHS FREQUENTLY. NO SAFETY AWARENESS. NO ATTEMPTS TO SELF T/F. BED ALARM ON. INCONTINENT. DOES NOT COMMUNICATE NEEDS. SLEPT MINIMALLY. NO ACUTE CHANGES OVERNIGHT.
--- NOTE | 2020-05-11 16:31 | NUR ---
SHIFT SUMMARY- PT A/O TO SELF ONLY. NONSENSICAL SPEECH. PT DENIES ANY COMPLAINTS T/O THE DAY. PT A 2 ASSIST OUT OF BED DUE TO NOT FOLLOWING DIRECTIONS WELL. LS CLEAR, ON RA, OCCASIONAL AUDIBLE WHEEZE NOTED. PACE PATENT AND DRAINING DARK JAYSON URINE. INCONT OF STOOL TODAY. PT CONTINUES TO AWAIT PLACEMENT.
--- NOTE | 2020-05-12 03:56 | NUR ---
SHIFT SUMMARY: HR 129 AFTER ACTIVITY, 90 UPON RECHECK. HR IRREGULAR. EXP WHEEZING AUSCULTATED IN YOSHI. AFEB. 02 97% ON RA. NO SOB. RESPS REGULAR, NON-LABORED. T/F W/ 2 ASSIST AND GAIT BELT. REQUIRES CUES DURING T/F TO BEAR WT W/LEGS. NO EDEMA. NO JVD. NO COUGHING. F/C PATENT AND DRAINING URINE TO GRAVITY. INCONTINENT OF STOOL. DANGLES LEGS OVER EDGE OF BED BUT NO ATTEMPTS TO INDEPENDENTLY GET UP OUT OF BED. BED LOW, BED ALARM ON. A/O TO SELF. DOES NOT COMMUNICATE NEEDS. MOOD IS GREAT, PT LAUGHS FREQUENTLY. AWAKE FOR MOST OF THE NIGHT TALKING TO SELF AND OTHERS NOT PRESENT IN THE ROOM. CALM AND COOPERATIVE. NO ACUTE OVERNIGHT EVENTS.
[2020-05-12 05:23] LABS: BASOPHILS ABSOLUTE AUTO 0.02 K/mm3 (0.00-0.23); BASOPHILS PERCENT AUTO 0 % (0-2); EOSINOPHILS ABSOLUTE AUTO 0.12 K/mm3 (0.00-0.68); EOSINOPHILS PERCENT AUTO 2 % (0-6); Hematocrit 37.5 % (37.0-53.0); IMMATURE GRAN ABSOLUTE AUTO 0.03 K/mm3 (0.00-0.10); IMMATURE GRAN PERCENT AUTO 0 % (0-1); LYMPHOCYTES ABSOLUTE AUTO 2.71 K/mm3 (0.84-5.20); LYMPHOCYTES PERCENT AUTO 39 % (21-46); MONOCYTES ABSOLUTE AUTO 0.71 K/mm3 (0.16-1.47); MONOCYTES PERCENT AUTO 10 % (4-13); Mean Corpuscular HGB 29.9 pg (26.0-34.0); Mean Corpuscular Volume 93 fL (80-100); Mean Platelet Volume 11.2 fL (9.1-12.4); NEUTROPHILS ABSOLUTE AUTO 3.33 K/mm3 (1.96-9.15); NEUTROPHILS PERCENT AUTO 48 % (41-73); NRBC ABSOLUTE 0.06 K/mm3 (0.00-0.02); NRBC Auto 0.9 /100 WBC (0.0-0.2); Platelet Count 173 K/mm3 (150-400); RDW Coefficient Variation 18.3 % (11.7-14.2); Red Blood Cell Count 4.02 M/mm3 (4.30-5.90); White Blood Cell Count 6.92 K/mm3 (4.00-11.30)
[2020-05-12 05:52] LABS: Albumin, Blood 2.3 g/dL (3.4-5.0); Anion Gap 6 mmol/L (6-16); Blood Urea Nitrogen 80 mg/dL (8-24); Bun/Creatinine Ratio 65.6 (12.0-20.0); CO2, Blood 27 mmol/L (21-32); Calcium, Blood 8.3 mg/dL (8.5-10.1); Chloride, Blood 112 mmol/L (98-108); Creatinine, Blood 1.22 mg/dL (0.60-1.20); Glomerular Filtration Rate >60 (60-); Glucose, Blood 91 mg/dL (70-99); Phosphorus, Blood 3.7 mg/dL (2.5-4.9); Potassium, Blood 4.1 mmol/L (3.5-5.5); Sodium, Blood 145 mmol/L (136-145)
--- NOTE | 2020-05-12 16:25 | NUR ---
SHIFT SUMMARY- PT ORIENTED TO SELF ONLY, PT CONFUSED AND DIFFICULT TO REDIRECT. PT UP TO RECLINER WITH 2 ASSIST BUT CONTINUOUSLY ATTEMPTING TO GET UP. PT SLEPT ON A OFF T/O THE DAY. PT DENIES ANY COMPLAINTS. LS CLEAR, ON RA, NO WHEEZING NOTED TODAY BUT PT DOES HAVE PRN DUONEBS AVAILABLE. HR IRREG BUT RATE CONTROLLED. PACE IN PLACE. NO OTHER ACUTE CHANGES THIS SHIFT. PT CONTINUES TO AWAIT PLACEMENT.
--- NOTE | 2020-05-12 17:36 | NUR ---
PHYSICAL EDUCATION TEACHER REPORTED PT NOTED TO HAVE BLACK STOOL WITH SOME HERACLIO COLOR, ATTENDS WERE TOSSED AND STOOL NOT COLLECTED. PT IS CURRENTLY ON XARELTO. VSS. ATTEMPTED TO CALL HOSPITALIST DUE TO HOSPITALIST COVERING [place] AT THIS TIME, AWAITING A CALL BACK AT THIS TIME.
--- NOTE | 2020-05-12 17:49 | NUR ---
DR THEODORE CALLED BACK, STAT [facility] ORDERED WELL TO [facility] NEXT STOOL.
[2020-05-12 18:03] LABS: Hematocrit 35.8 % (37.0-53.0); Hemoglobin 11.7 g/dL (13.5-17.5)
[2020-05-13 13:50] LABS: Stool Occult Blood Guaiac 1 Pos (Neg)
--- NOTE | 2020-05-13 13:58 | NUR ---
s/w Odalysselvin, JORDON [phone], she is completeing assessment, finacials are approved. She needs a move in date from [facility]. Left message with CARMEN Damon to contact [facility] for move in date. Son Domingo, is applying for payee status with Social security. Asked Tavo to let [facility] know that is in the works. cp
--- NOTE | 2020-05-13 16:35 | NUR ---
continues to want to sleep during the day, tried to keep him awake but he became very agitated and was left alone and fell back to sleep, not interested in tv or any other stimulation, call light in reach, no IV, rm air, bed in low position, will continue to monitor and treat until share bsr with pt and noc nurse
--- NOTE | 2020-05-13 23:34 | NUR ---
PHYSICIAN CORRESPONDENCE PATIENT BP 101/66, P 83; RE-CHECKED 99/71, P 113. SPOKE TO ON-CALL PHYSICIAN, OK TO HOLD BEDTIME METOPROLOL DOSE.
--- NOTE | 2020-05-14 05:28 | NUR ---
SHIFT SUMMARY ALERT TO SELF. RESPONDS TO PAINFUL STIMULI. SOMEWHAT COMBATIVE WITH CARE, BUT POTENTIALLY R/T HEARING DEFICIT WELL COGNITIVE ABILITY. NO C/O PAIN/DISCOMFORT. HYPOTENSIVE THIS SHIFT. NEEDS LOTS OF ENCOURAGEMENT TO EAT/DRINK. HELD METOPROLOL VERIFIED WITH ON-CALL PROVIDER. PACE SECURED, PATENT AND DRAINING TO GRAVITY. X1 LOOSE DARK STOOL. DID NOT APPEAR TO REST AT ALL OVERNIGHT. NO ATTEMPTS TO EXIT BED. BED REMAINS IN LOWEST POSITION; ALARM ON. CALL LIGHT WITHIN REACH; DOES NOT UTILIZE. CONTINUE WITH CURRENT PLAN OF CARE. REPORT TO ONCOMING RN.
--- NOTE | 2020-05-14 16:22 | NUR ---
PT HAS SLEPT OR STAYED IN BED ALL SHIFT. PT REFUSES TO FEED SELF BUT WILL TAKE SOME FOOD IF FED . HE REMAINS NONSENSICAL IN HIS VERBAGE. HE IS INCONTINENET AND REQUIRES 2 ASSIST WITH CHANGES DUE TO HIS LEGS BEING CONTRACTED (BY CHOICE) UP TO HIS CHEST. HE DOES NOT TRY TO GET OUT OF BED AND IS UNABLE TO ANSWER QUESTIONS WITH ANY REASON. CALL LIGHT WITH IN REACH AND PT CHECKED Q2.
--- NOTE | 2020-05-14 17:51 | NUR ---
Pt resting staff reports more zach and tightening. Review of pt with hospitalist and updated his daughter. Afer review daughter agrees it is time to start comfort orders. Will continue supportive calls to family with updates.
--- NOTE | 2020-05-14 18:24 | NUR ---
PT MOVED TO CC. SON AT BEDSIDE WHEN ORDER CAME IN . HE WAS IN COMPLETE AGREEMENT. PT NEEDS TO BE FED AND ENCOURAGED TO EAT. HE HAS NOT ATTEMPTED TO GET OUT OF BED THIS SHIFT. CATH DRAINING. DARK URINE NOTED.
--- NOTE | 2020-05-14 18:25 | NUR ---
05/14/20 s/w [facility], Erika, has concerns about [facility] is appropriate for their facility. She wanted to know if he is walking? is he a fall risk? I received a call from son Domingo, I let him know that Medicaid had approved him for placement and looking for a discharge date. Let him know that Rao had concerns. He also has concerns, dosnt understand his Dads current condition, not eating, wheezy, stays in bed, does not want to interact or talk on the phone. I told him I would have the Dr Call him to discuss his current condition and his opinion as to why his condition has worsend over the last month. s/w Oleg floor nurse Has more confusion over the last month Went from interactive, trying to get out of bed, chattering nonsensical, feeding himself to- Staying curled up like a potato bug in bed, has to be fed, does not try to get out of bed, does not watch tv or want to talk on the phone. He does speak nonsensical at times, he will giggle when his depends are being changed. Oleg reviewed labs and vitals, no changes. She is concerned he is now failure to thrive. I will update [facility] to discuss his current status and discharge on Wednesday. cp
--- NOTE | 2020-05-14 18:28 | NUR ---
PT PLACED ON CC.
--- NOTE | 2020-05-14 19:05 | NUR ---
ASSUMED CARE RECEIVED REPORT FROM MIRI NATHAN. PT ASLEEP, APPEARS COMFORTABLE, RESPS E/U. NO ACUTE NEEDS OR DISTRESS NOTED AT THIS TIME. CALL LIGHT, POSSESSIONS IN REACH. CONTINUE TO MONITOR AND PROVIDE FOR COMFORT.
--- NOTE | 2020-05-15 04:14 | NUR ---
M1 ARMOR CREWMAN SUMMARY PT ASLEEP, IN NO ACUTE DISTRESS. COMFORT MAINTAINED THROUGHOUT NIGHT. NO C/O PAIN OR DISCOMFORT. PT ALERT TO SELF, CONTINUES TO MUMBLE NONSENSICALLY. RE-DIRECTABLE. NO ACUTE CHANGES IN CONDITION NOTED OVERNIGHT. PACE CATHETER PATENT AND DRAINING JAYSON YELLOW URINE TO GRAVITY, TUBING FREE OF KINKS. NO ACUTE NEEDS ASSESSED AT THIS TIME; APPEARS COMFORTABLE. CALL LIGHT, POSSESSIONS IN REACH, BED IN LOW POSITION WITH ALARMS ON. CONTINUE TO MONITOR AND PROVIDE FOR COMFORT UNTIL REPORT GIVEN TO DAY RN.
--- NOTE | 2020-05-15 08:15 | NUR ---
PT SLEEPING.NURSE COVERED HIM WITH BLANKET. NO DISTRESS NOTED.
--- NOTE | 2020-05-15 09:30 | NUR ---
ATTEMPTED TO FEED BREAKFAST. PT DRANK ENSURE. REFUSED FOOD. VERY CONFUSED.DOES NOT ATTEMPT TO GET OUT OF BED. KATEYLNN PATENT.
--- NOTE | 2020-05-15 12:21 | NUR ---
ADMIT:04/03/20 DISCHARGE: 05/16/20 DX: afib, chf CC: [email or web address] Page 2 TRANG CALL: Discharge to [facility] on [facility] hospice 05/16/20 RESIDENCE: [facility] CAREGIVER: [facility] Donnell Estrada [phone]- Friend, will be ride home from Hospital. PANDA LEON [phone]. SON. Medicaid patient case manager - Radha Tran [phone] DX: dementia, htn, copd, hearing loss, AFIB, CHF, see list. DME: Hospice to provide, Bed, joe, bedside table, wheelchair, commode. Deliver wed or 05/15 Hospice- [facility] to start 05/16/20 SUMMARY: ADMIT 04/03/20 05/15/20 [facility] ([facility] will admit , gurney transport before 2:00pm, Hospice packet sent to [facility] ([facility]) to start service wednesday05/17/20 Order signed and dme requested to arrive wed afternoon or am at [facility]. I will Fax med list to [facility] . Earlier discussion with Michael Lane, offered choice, agrees to d/c to [facility] on [facility] hospice Panda should expect a call from Raúl to learn about Larrys background. 05/14/[address] called for a update on medicaid and his condition, Palliative care was in to see Ronald today, his condition has declined, no longer eating or drinking on his own, comfort care was intiated after family discussion. 05/13/20 s/w Radha, financials are complete, assement is complete., just need a move in day at [facility]. Marisol MORALES is contacting [facility] to establish date of discharge. cp 05/09/20 Left message for Radha today for update on medicaid status. Renita MORALES was in contact with [facility] today and sent Ra[facility] updated notes on Larrys condition. Renita states that ronald may be appropriate for bin placment until medicaid is approved. cp
--- NOTE | 2020-05-15 13:01 | NUR ---
Attempted a visit with [facility], he was lying on his right side with eyes closed. Resp are even and unlabored. He does not appear to be in any pain at this time. MIRI Roach reports pt is napping more often over the past few days, and he is no longer attempting to get up OOB without assistance. MIRI Roach reports pt is not eating more than "a bite or two" of his meals, and even then he is pocketing the food before spitting it out. She also reports receiving a call this am that pt to be transferring to [facility] on comfort care tomorrow, ETA to be announced. She denies any needs at this time. Palliative care to remain available for assistance, or any further identified needs.
--- NOTE | 2020-05-15 16:06 | NUR ---
PT SLEEPING. FRIEND CAME TO VISIT, PT DID NOT WAKE UP. NO DISTRESS NOTED.
--- NOTE | 2020-05-15 17:59 | NUR ---
DINNER PRESENTED TO PATIENT. ASSISTED TO FEED BUT PATIENT REFUSED. NO DISTRESS NOTED.
--- NOTE | 2020-05-15 18:39 | NUR ---
Spiritual care note: Mr. Glass did not respond to voice. He did move deeper into the bed when I touched him. He seems quite frail, but comfortable and well cared-for by nursing. No family/friends present. Per chart, he is not anglican. I provided presence of love and will remain available.
--- NOTE | 2020-05-15 20:16 | NUR ---
ASSUMPTION OF CARE. REPOSTIONED, ATTENDS CHANGED, SMALL BROWN SOFT BM NOTED. NO PAIN NOTED. PULLS LEGS TO POSTION AND KEEPS THEM THERE. BOTTOM SLIGHTLY RED, BARRIER CREAM APPLIED. OFFERED DRINK. WILL CONTINUE TO MONITOR.
--- NOTE | 2020-05-16 04:48 | NUR ---
SHIFT SUMMARY: ALERT TO SELF ONLY, [place]. DOES NOT ALWAYS FOLLOW DIRECTION. INCONTIENT OF URINE AND BOWEL. ON COMFORT CARE. NO PAIN NOTED. DID GET HIM TO EAT SOME APPLESAUCE WHEN TAKING MEDS, GAVE FLUIDS WELL. REPOSITIONED BUT HE LIKES TO WIGGLE IN BED. DOES PULL LEGS UP IN POSITION BUT HAS STRAIGHTEN THEM OUT AT TIMES. ATTENDS CHANGED PRN. BED ALARM ON, CALL LIGHT IN REACH. WILL CONTINUE TO MONITOR.
[2020-05-16 06:10] LABS: Influenza A, PCR Negative (NEGATIVE); Influenza B, PCR Negative (NEGATIVE); Resp Syncytial Virus, PCR Negative (NEGATIVE); SARS-Cov-2 (COVID-19) PCR, MMC Negative (NEGATIVE)
[2020-05-16] MEDS ORDERED: ACET325 PO (10:19)
[2020-05-16] MEDS ORDERED: ACET120S PR (10:20)
[2020-05-16] MEDS ORDERED: ATROPINE SULFATE2 M5 SL (10:20)
[2020-05-16] MEDS ORDERED: IPRAT-ALBUT 0.5-3 ML INH (10:21)
[2020-05-16] MEDS ORDERED: Ativan1 MG PO (10:21)
[2020-05-16] MEDS ORDERED: MORP20L SL (10:23)
[2020-05-16] MEDS ORDERED: TRAZ50 PO (10:24)
[2020-05-16] MEDS ORDERED: OLAN5 PO (10:24)
[2020-05-16] MEDS ORDERED: TRANSDERM-SCOP1 EAC4 TOP (10:24)
--- NOTE | 2020-05-16 11:04 | NUR ---
REPORT CALLED REPORT CALLED TO [facility]. NO FURTHER QUESTIONS ABOUT PT AT THIS TIME.
--- NOTE | 2020-05-16 12:39 | NUR ---
05/16/20- PT D/C TODAY ON [facility] TO [facility]. TRANSPORTATION SET UP WITH [facility] [employer] TO GO BY [employer]. FLOOR NURSE HAS BEEN NOTIFIED OF TIME. [facility] CALLED AND THEY HAVE CONFIRMED THAT THE DME HAS BEEN DELIVERED AND SET UP IN THE PT'S ROOM. FACESHEET AND D/C SUMMARY FAXED TO [facility]. -MATTHEWW
--- NOTE | 2020-05-16 13:11 | NUR ---
DISCHARGE PT DISCHARGED AT 1238. PT PICKED UP VIA GURNEY TRANSPORT & TAKEN TO [facility]. PT DID NOT REQUIRE PRN MEDS PRIOR TO DC. SOME PT BELONGINS SENT WITH PT. PT SON NOTIFIED OF THE BELONGINGS THAT WERE LEFT HERE BY ANTONIO, ACC. PT BATHED & DRESSED PRIOR TO DC. REPORT ALREADY GIVEN TO [facility].
== END 2020-05-16 12:38 | disposition hospice, inpatient (51) | DRG 308 ==
LOC: ER 08:17 → ERHOLD 10:55 → MEDS 10:55 → PCU 14:35 → MEDS 04-04 10:05
PROVIDERS: Family Medicine; Hospitalist; Internal Medicine; Internal Medicine Gastroenterology; Physician Assistant; Student in an Organized Health Care Education/Training Program; ADMIT Hospitalist
DX: I48.20 Chronic atrial fibrillation, unspecified (principal); I50.43 Acute on chronic combined systolic (congestive) and diastolic (congestive) heart failure; I82.90 Acute embolism and thrombosis of unspecified vein; K92.1 Melena; E44.0 Moderate protein-calorie malnutrition; I11.0 Hypertensive heart disease with heart failure; Z79.01 Long term (current) use of anticoagulants; Z66 Do not resuscitate; F03.90 Unspecified dementia, unspecified severity, without behavioral disturbance, psychotic disturbance, mood disturbance, and anxiety; L60.2 Onychogryphosis; R45.1 Restlessness and agitation; Z51.5 Encounter for palliative care; N40.1 Benign prostatic hyperplasia with lower urinary tract symptoms; R33.8 Other retention of urine; E78.5 Hyperlipidemia, unspecified; J44.9 Chronic obstructive pulmonary disease, unspecified; F17.210 Nicotine dependence, cigarettes, uncomplicated; I70.90 Unspecified atherosclerosis; I95.1 Orthostatic hypotension; I27.20 Pulmonary hypertension, unspecified; I42.9 Cardiomyopathy, unspecified; D69.6 Thrombocytopenia, unspecified; Z91.81 History of falling; Z68.21 Body mass index [BMI] 21.0-21.9, adult
CPT/HCPCS: 0241U; 36415; 51703; 70450; 71046; 80048; 80053; 80069; 80162; 81001; 82270; 82607; 82746; 83735; 83880; 84100; 84443; 84484; 85014; 85018; 85025; 85610; 87086; 93005; 93010; 93306; 94664; 94667; 94760; 94762; 96365; 96366; 96375; 96376; 97110; 97116; 97129; 97130; 97162; 97165; 97530; 98960; 99285-25; 99407; A9270; J1160; J1650; J1940